=== PATIENT | female | born 1965 | race Two or more races ===

== ENCOUNTER 2023-01-28 23:34 | Inpatient (IN) | payer BC, OTHER ==
[~2023-01-28] VITALS: Ht 165.1 cm; Wt 100.7 kg
--- NOTE | 2023-01-28 23:44 | NUR ---
PA NEGRETE FROM [facility] C/O CP SINCE 7PM + NAUSEA, SAFETY MEASURES IN PLACED, SEEN BY MD AT BEDSIDE.
[2023-01-28] MEDS ORDERED: ASPIRIN 325 MG TABLET ONE (23:54)
[2023-01-28] MEDS ORDERED: NITROGLYCERIN 0.4 MG/TAB BOTTLE ONE (23:54)
--- NOTE | 2023-01-28 23:59 | NUR ---
RAC #20G S/L BLOOD COLLECTED AND SENT TO LAB
[2023-01-29] MEDS ORDERED: ONDANSETRON HCL/PF 4 MG/2 ML VIAL IV ONE
[2023-01-29] MEDS ORDERED: NITROGLYCERIN 0.4 MG/TAB BOTTLE SL ONE
[2023-01-29] MEDS ORDERED: ASPIRIN 325 MG TABLET PO ONE
[2023-01-29] MEDS ORDERED: ONDANSETRON HCL/PF 4 MG/2 ML VIAL ONE (00:02)
[2023-01-29 00:31] LABS: BASOPHILS % (AUTO) 0.7 % (0.0-2.0); EOSINOPHILS % (AUTO) 2.8 % (0.0-6.0); HEMATOCRIT 29 % (33-45); HEMOGLOBIN 9.2 g/dL (11.5-14.8); LYMPHOCYTES # (AUTO) 1.2 K/uL (0.8-4.8); LYMPHOCYTES % (AUTO) 17.2 % (20.0-44.0); MEAN CORPUSCULAR HGB CONC 32 g/dl (31.0-36.0); MEAN CORPUSCULAR VOLUME 101 fL (82-100); MONOCYTES # (AUTO) 0.7 K/uL (0.1-1.30); MONOCYTES % (AUTO) 10.4 % (2.0-12.0); NEUTROPHILS # (AUTO) 4.8 K/uL (1.8-8.9); NEUTROPHILS % (AUTO) 68.9 % (43.0-81.0); PLATELET COUNT (AUTO) 262 K/uL (150-450); RED BLOOD CELL COUNT(AUTO) 2.81 MIL/uL (4.0-5.2); WHITE BLOOD COUNT (AUTO) 6.9 K/uL (4.3-11.0)
--- NOTE | 2023-01-29 00:34 | NUR ---
SHOE PLANNER AT PT'S BEDSIDE
[2023-01-29 00:41] LABS: CALCIUM, SERUM 8.9 mg/dL (8.5-10.1); CARBON DIOXIDE 29 mmol/L (21-32); CHLORIDE 98 mmol/L (98-107); CREATININE 2.8 mg/dL (0.6-1.3); GLUCOSE 152 mg/dL (74-106); SODIUM SERUM 133 mmol/L (136-145); UREA NITROGEN, BLOOD 37 mg/dL (7-18)
[2023-01-29 00:56] LABS: ALANINE AMINOTRANSFERASE 23 U/L (12-78); ALBUMIN 2.8 g/dL (3.4-5.0); ALKALINE PHOSPHATASE 212 U/L (46-116); ASPARTATE AMINOTRANSFERASE 22 U/L (15-37); BILIRUBIN,DIRECT 0.1 mg/dL (0.0-0.2); BILIRUBIN,TOTAL 0.3 mg/dL (0.2-1.0); TOTAL PROTEIN, SERUM 7.1 g/dL (6.4-8.2)
[2023-01-29] MEDS ORDERED: FUROSEMIDE 40 MG/4 ML VIAL IV ONE (01:00)
[2023-01-29] MEDS ORDERED: ALBUTEROL FS 2.5 MG/0.5 ML VIAL.NEB NEB ONE (01:00)
[2023-01-29] MEDS ORDERED: CALCIUM CHLORIDE 1,000 MG/10 ML DISP.SYRIN IV ONE (01:00)
[2023-01-29] MEDS ORDERED: SODIUM POLYSTYRENE SULFONATE 15 G/60 ML BOTTLE PO ONE (01:00)
[2023-01-29] MEDS ORDERED: LEVOFLOXACIN 750 MG /D5W 150ML PIGGYBACK IV ONE (01:00)
[2023-01-29] MEDS ORDERED: SODIUM POLYSTYRENE SULFONATE 15 G/60 ML BOTTLE ONE (01:01)
[2023-01-29] MEDS ORDERED: CALCIUM CHLORIDE 1,000 MG/10 ML DISP.SYRIN ONE (01:01)
[2023-01-29] MEDS ORDERED: FUROSEMIDE 40 MG/4 ML VIAL ONE (01:01)
--- NOTE | 2023-01-29 01:01 | NUR ---
CALLED RT FOR BREATHING TX
--- NOTE | 2023-01-29 01:04 | NUR ---
COVID ANTIGEN & MRSA SWAB COLLECTED AND SENT TO LAB
--- NOTE | 2023-01-29 01:06 | NUR ---
COVID ANTIGEN AND MRSA SWAB COLLECTED AND SENT TO LAB.
[2023-01-29] MEDS ORDERED: ALBUTEROL FS 2.5 MG/0.5 ML VIAL.NEB ONE (01:17)
[2023-01-29] MEDS ORDERED: MORPHINE SULFATE INJ 2 MG/ML DISP.SYRIN ONE (01:19)
--- NOTE | 2023-01-29 01:25 | NUR ---
SUPERVISOR LABOR GANG AT BEDSIDE, PT BLOOD DRAWN FOR CULTURE
[2023-01-29] MEDS ORDERED: MORPHINE SULFATE INJ 2 MG/ML DISP.SYRIN IV ONE (01:30)
[2023-01-29] MEDS ORDERED: LEVOFLOXACIN 750 MG /D5W 150ML 150 ML IV ONE (01:31)
--- NOTE | 2023-01-29 01:55 | NUR ---
DR BRISCOE DO ON PHONE CALL WITH DR BERTO DUQUE HOSPITALIST
[2023-01-29] MEDS ORDERED: IV NS 0.9% 500 ML BAG IV ONE (02:30)
--- NOTE | 2023-01-29 02:35 | NUR ---
REPORT GIVEN TO 3W MARGARITA GENTILE PT TRANSFERRED TO 322
--- NOTE | 2023-01-29 03:00 | NUR ---
pt transported to [address] [place] [id number] on stable condition, RN at bedside acls protocol followed upon transport
[2023-01-29] MEDS ORDERED: MAG HYDROX/AL HYDROX/SIMETH 30 ML UDC PO PRN (03:30)
[2023-01-29] MEDS ORDERED: MAGNESIUM HYDROXIDE 30 ML UDC PO PRN (03:30)
[2023-01-29] MEDS ORDERED: ACETAMINOPHEN 325 MG TABLET PO PRN (03:30)
[2023-01-29] MEDS ORDERED: ZOLPIDEM TARTRATE 5 MG TABLET PO PRN (03:30)
[2023-01-29] MEDS ORDERED: LEVOFLOXACIN 500 MG /D5W 100ML 500 MG in PREMIX 1 EA IV SCH (03:30)
--- NOTE | 2023-01-29 03:30 | NUR ---
MORTGAGE FIELD INSPECTORDOG LICENSE OFFICER SUPERVISOR NOTE PATIENT ARRIVED ON UNIT ALERT/ORIENTED X 3, PT ABLE TO MAKE NEEDS KNOWN. PATIENT IMMEDIATELY ASKING FOR MORPHINE AND ATIVAN DESPITE GIVEN MORPHINE 2 MG IN ER 1 HR AGO, PATIENT DESCRIBES 10/10 PAIN IN "CHEST, BACK, FEET, EVERYWHERE", WILL NOTIFY MD FOR PAIN MEDICATION ORDER. PATIENT ALSO ASKING FOR ATIVAN, STATES SHE NEEDS IT FOR HER ANXIETY. PATIENT STABLE ON 2 LPM OF O2 VIA NASAL CANNULA, NO S/S OF DISTRESS OR SOB NOTED, BREATHING EVEN AND UNLABORED. PATIENT PLACED ON TELE MONITOR READING SINUS RHYTHM WITH PAC'S, HR: 82. WOUND PHOTOS TAKEN. BELONGINGS CHARTED AND SHEET PLACED IN CHART. ORIENTED PATIENT TO ROOM AND HOW TO USE CALL LIGHT. PUREWICK PLACED ON PATIENT. SAFETY MEASURES IN PLACE: CALL LIGHT WITHIN REACH, SIDE RAILS UP X 3, BED LOCKED IN LOWEST POSITION, HOB ELEVATED, BED ALARM ON. WILL CONTINUE TO MONITOR PATIENT
[2023-01-29 04:00] VITALS: BP 135/58
[2023-01-29] MEDS ORDERED: MORPHINE SULFATE INJ 2 MG/ML DISP.SYRIN IV PRN (04:00)
[2023-01-29] MEDS: LORAZEPAM INJ 2 MG/ML VIAL IV PRN ×2 (05:07→13:46)
[2023-01-29 06:16] LABS: CALCIUM, SERUM 9.4 mg/dL (8.5-10.1)
[2023-01-29 06:26] LABS: POTASSIUM 6.2 mmol/L (3.5-5.1)
[2023-01-29 07:00] VITALS: BP 117/60
--- NOTE | 2023-01-29 07:10 | NUR ---
DISTANCE LEARNING PROGRAM COORDINATOR OPENING NOTES RECEIVED PATIENT AWAKE IN BED, A/O3, ON 2LPM VIA NASAL CANNULA, NO RESPIRATORY DISTRESS, IV ACCESS RAC #20G SL, INTACT AND PATENT, NO S/S OF INFILTRATION, ON TELE MONITORING, SINUS RHYTHM HR 79, PATIENT C/O GENERALIZED PAIN, PRN ADMINISTERED AT THIS TIME, EXPLAINED TO PATIENT UNABLE TO GIVE,HAS PUREWICK, SKIN ISSUES, GENERALIZED REDNESS AND LEFT ARM SCAB AND BRUISES, SAFETY MEASURES IN PLACE, BED LOCK AND IN LOWEST POSITION, HOB ELEVATED, CALL LIGHT WITHIN REACH, SIDE RAILS UP X2.
--- NOTE | 2023-01-29 07:15 | NUR ---
PRECIPITATOR OPERATOR CLOSING NOTE PATIENT AWAKE IN BED, ALERT/ORIENTED X 3, PT ABLE TO MAKE NEEDS KNOWN. PATIENT STABLE ON 2 LPM OF O2 VIA NASAL CANNULA, NO S/S OF DISTRESS OR SOB NOTED, BREATHING EVEN AND UNLABORED. PATIENT ON TELE MONITOR READING SINUS BRODY WITH ARRHYTHMIA, HR: 58. PATIENT CONTINUOUSLY ASKING FOR PAIN MEDICATION, STATES "MORPHINE DOESN'T WORK FOR ME, I NEED DILAUDID", "I HAVE A VERY LOW PAIN TOLERANCE," "I'M IN A LOT OF PAIN EVERYWHERE." IV ACCESS ON RAC #20G INTACT AND FLUSHING WELL, SALINE LOCKED. MEDICATIONS GIVEN ORDERED, PT NEEDS MET THROUGHOUT SHIFT. MRSA SWAB TAKEN. SAFETY MEASURES IN PLACE: CALL LIGHT WITHIN REACH, SIDE RAILS UP X 3, BED LOCKED IN LOWEST POSITION, HOB ELEVATED, BED ALARM ON. ENDORSED TO DAYSHIFT RN FOR CONTINUITY OF CARE
[2023-01-29] MEDS: PANTOPRAZOLE 40 MG TABLET.DR PO SCH (08:17)
[2023-01-29] MEDS: ASPIRIN 81 MG TAB.CHEW PO SCH (08:17)
[2023-01-29] MEDS: MORPHINE SULFATE INJ 2 MG/ML DISP.SYRIN IV PRN ×5 (08:50→23:03)
--- NOTE | 2023-01-29 08:51 | NUR ---
RN NOTES PATIENT COMPLAINING OF PAIN 10/10, GENERALIZED AND CHEST. MD NOTIFIED AND MORPHINE PRN CHANGED TO Q4 INSTEAD OF Q6. PRN ADMINISTERED.
[2023-01-29] MEDS: ALBUMIN 25% 25 GM in PREMIX 1 EA IV PRN (09:40)
--- NOTE | 2023-01-29 09:56 | NUR ---
RN NOTE PATIENT HAVING DIALYSIS HD NURSE INFORMED RN THAT BP IS LOW, PRN ALBUMIN ORDERED AND ADMINISTERED.
--- NOTE | 2023-01-29 13:48 | NUR ---
RN NOTES PATIENT REQUESTED PRN ATIVAN. MEDICATION ADMINISTERED. WILL CONTINUE TO MONITOR.
[2023-01-29 14:08] LABS: CALCIUM, SERUM 9.3 mg/dL (8.5-10.1); CREATININE 2.7 mg/dL (0.6-1.3); POTASSIUM 4.9 mmol/L (3.5-5.1)
[2023-01-29] MEDS ORDERED: EPOETIN ALFA-EPBX 10,000 UNIT/ML VIAL IV ONE (15:00)
[2023-01-29] MEDS ORDERED: CT SWABBABLE VALVE TRANS SET 1 EA INFUS.SET MC ONE (15:19)
[2023-01-29] MEDS ORDERED: IV NS 0.9% 250 ML IV ONE (15:19)
[2023-01-29] MEDS ORDERED: IOHEXOL-350 100 ML VIAL IV ONE (15:19)
[2023-01-29 16:00] VITALS: BP 118/66
--- NOTE | 2023-01-29 17:00 | NUR ---
RN NOTES CALLED [facility] REGARDING PATIENT'S MEDICATION. SPOKE TO SYLVIE, GAVE FAX NUMBER AND REQUESTED MED LIST TO BE SENT.
--- NOTE | 2023-01-29 18:44 | NUR ---
NBA PLAYER CLOSING NOTES PATIENT AWAKE IN BED, A/OX3, STABLE ON 2LPM VIA NASAL CANNULA, NO RESPIRATORY DISTRESS, IV ACCESS RAC #20G SL, INTACT AND PATENT, NO S/S OF INFILTRATION, ON TELE MONITORING, SINUS RHYTHM HR 79, PATIENT C/O GENERALIZED PAIN, PRN ADMINISTERED AT THIS TIME, EXPLAINED TO PATIENT UNABLE TO GIVE,HAS PUREWICK, SKIN ISSUES, GENERALIZED REDNESS AND LEFT ARM SCAB AND BRUISES, ADMINISTERED MEDICATION ORDERED, PATIENT WAS TURNED AND REPOSITIONED PER PROTOCOL, ALL NEEDS ATTENDED, SAFETY MEASURES IN PLACE AND MAINTAINED AT ALL TIMES, BED LOCK AND IN LOWEST POSITION, HOB ELEVATED, CALL LIGHT WITHIN REACH, SIDE RAILS UP X2. WILL ENDORSE TO NEXT SHIFT ANY GUILLERMINA.
--- NOTE | 2023-01-29 19:40 | NUR ---
PIPING SUPERVISOR OPENING NOTE RECEIVED PATIENT AWAKE, RESTING IN BED. PT A/O X3, ABLE TO VERBALIZE NEEDS. ON 2LPM VIA NASAL CANNULA, NO RESPIRATORY DISTRESS, IV ACCESS TO RIGHT AC #20G SL, INTACT AND PATENT, NO S/S OF INFILTRATION, ON TELE MONITORING, SINUS RHYTHM WITH HR: 81. HAS PUREWICK IN PLACE. SKIN ISSUES: GENERALIZED REDNESS AND LEFT ARM SCAB AND BRUISES. SAFETY MEASURES IMPLEMENTED: BED LOCK AND IN LOWEST POSITION, HOB ELEVATED, CALL LIGHT WITHIN REACH, SIDE RAILS UP X2. WILL CONTINUE TO MONITOR PT.
[2023-01-29 20:00] VITALS: BP 119/58
--- NOTE | 2023-01-29 21:00 | NUR ---
BOAT OUTFITTER NOTE PT'S IV TO RIGHT AC #20G, IS NO LONGER PATENT. TRIED UNSUCCESSFULLY TO INSERT IV SEVERAL TIMES. PT HAS VERY POOR VEINS.
--- NOTE | 2023-01-29 23:00 | NUR ---
PUTTY AND CAULKING SUPERVISOR NOTE NEW IV ACCESS INSERTED TO RIGHT UPPER ARM #22G, IV INTACT, AND PATENT.
--- NOTE | 2023-01-29 23:03 | NUR ---
HEAD GROWER NOTE PT REPORTS BACK PAIN. MORPHINE ADMINISTERED TO PT FOR PAIN.
--- NOTE | 2023-01-29 23:50 | NUR ---
CHARGE NURSE NOTES Pt is a hard stick, got a Midline order from Dr. Baca, order noted and carried out
[2023-01-30] MEDS: LORAZEPAM INJ 2 MG/ML VIAL IV PRN ×3 (00:10→16:32)
--- NOTE | 2023-01-30 01:25 | NUR ---
TRAINING INSTRUCTOR NOTE MIDLINE INSERTION ORDER GIVEN BY DR THOMSON. MIDLINE NURSE PRESENT, AND MIDLINE INSERTED TO RIGHT UPPER ARM, #18G. .
--- NOTE | 2023-01-30 03:00 | NUR ---
OFFICE SYSTEM ANALYST NOTE PT C/O BEING UNABLE TO URINATE. BLADDER SCAN DONE, PVR: 123 ML OF URINE. PT IS ON HD. CHARGE NURSE AWARE.
[2023-01-30] MEDS: MORPHINE SULFATE INJ 2 MG/ML DISP.SYRIN IV PRN ×5 (03:18→22:07)
--- NOTE | 2023-01-30 03:20 | NUR ---
SPECIAL EDUCATION RESOURCE ROOM TEACHER NOTE PT C/O GENERALIZED PAIN. MORPHINE ADMINISTERED TO PT FOR PAIN.
--- NOTE | 2023-01-30 06:40 | NUR ---
PIGMENT MAKING SUPERVISOR CLOSING NOTE LEFT PATIENT AWAKE, RESTING IN BED. PT A/O X3, ABLE TO VERBALIZE NEEDS. ON 2LPM VIA NASAL CANNULA, NO RESPIRATORY DISTRESS, MIDLINE TO RIGHT UA #18G SL,AND RIGHT UA IV ACCESS, 22G, INTACT AND PATENT, NO S/S OF INFILTRATION, ON TELE MONITORING, SINUS RHYTHM WITH HR: 81. HAS PUREWICK IN PLACE, URINE OUTPUT: 150 ML. SKIN ISSUES: GENERALIZED REDNESS AND LEFT ARM SCAB AND BRUISES. SAFETY MEASURES IMPLEMENTED: BED LOCK AND IN LOWEST POSITION, HOB ELEVATED, CALL LIGHT WITHIN REACH, SIDE RAILS UP X2. WILL ENDORSE PT TO AM SHIFT NURSE FOR GUILLERMINA.
[2023-01-30 07:00] VITALS: BP 105/57
--- NOTE | 2023-01-30 07:00 | NUR ---
AGRICULTURE TECHNICIAN OPENING NOTES: RECEIVED PT IN BED AWAKE, ALERT AND ORIENTED X 3 ABLE TO MAKE NEEDS KNOWN. ON PAIN MEDS ORDERED. ON TELE MONITOR WITH CURRENT READING OF:SINUS RHYTHM @ 77BPM. NOTED WITH LEFT CHEST PERMA CATH. IV ACCESS ON CHRIS GAUGE 20, HCRIS MIDLINE GAUGE 18 PATENT, INTACT AND SALINE LOCKED. ON PUREWICK ATTACHED TO SUCTION.SAFETY MEASURES MAINTAINED: BED LOCKED AND IN LOWEST POSITION, SIDERAILS UP X 2. CALL LIGHT IN EASY REACH AND WILL MONITOR PT ACCORDINGLY.
[2023-01-30] MEDS: PANTOPRAZOLE 40 MG TABLET.DR PO SCH (07:34)
[2023-01-30 07:45] LABS: BASOPHILS % (AUTO) 0.7 % (0.0-2.0); EOSINOPHILS % (AUTO) 3.8 % (0.0-6.0); HEMATOCRIT 27 % (33-45); HEMOGLOBIN 8.7 g/dL (11.5-14.8); LYMPHOCYTES # (AUTO) 1.1 K/uL (0.8-4.8); LYMPHOCYTES % (AUTO) 20.7 % (20.0-44.0); MEAN CORPUSCULAR HGB CONC 33 g/dl (31.0-36.0); MEAN CORPUSCULAR VOLUME 102 fL (82-100); MONOCYTES # (AUTO) 0.5 K/uL (0.1-1.30); MONOCYTES % (AUTO) 9.5 % (2.0-12.0); NEUTROPHILS # (AUTO) 3.5 K/uL (1.8-8.9); NEUTROPHILS % (AUTO) 65.3 % (43.0-81.0); PLATELET COUNT (AUTO) 244 K/uL (150-450); RED BLOOD CELL COUNT(AUTO) 2.62 MIL/uL (4.0-5.2); WHITE BLOOD COUNT (AUTO) 5.4 K/uL (4.3-11.0)
[2023-01-30 08:04] LABS: CALCIUM, SERUM 8.7 mg/dL (8.5-10.1); CREATININE 3.1 mg/dL (0.6-1.3); MAGNESIUM 2.1 mg/dL (1.8-2.4); PHOSPHORUS 4.7 mg/dL (2.5-4.9); POTASSIUM 6.1 mmol/L (3.5-5.1)
[2023-01-30 08:14] LABS: THYROID STIMULATING HORMONE 8.896 uIU/mL (0.358-3.74)
[2023-01-30] MEDS: ASPIRIN 81 MG TAB.CHEW PO SCH (08:17)
--- NOTE | 2023-01-30 08:38 | NUR ---
WOUND CARE CONSULT: PT PRESENTS WITH SACRAL INTACT DEEP TISSUE INJURY WITH DRY SCAB TO RT BUTTOCK, RASHES TO BREASTFOLDS, ABDOMINAL/GROIN FOLDS AND FRAGILE SKIN, ALL PRESENT ON ADMISSION. RECOMMENDATIONS MADE FOR SKIN PROTECTION. DISCUSSED WITH NURSING STAFF. MD IN AGREEMENT WITH PLAN OF CARE.
--- NOTE | 2023-01-30 08:45 | NUR ---
RN NOTES: PT STARTED HD, PT STABLE.
[2023-01-30] MEDS ORDERED: DEXTROSE 50%-WATER 50 ML DISP.SYRIN IVP ONE (09:00)
[2023-01-30] MEDS: METOPROLOL TARTRATE 50 MG TABLET PO SCH ×2 (09:00→20:33)
[2023-01-30] MEDS ORDERED: INSULIN REGULAR, HUMAN 100 UNIT/ML 10 ML VIAL IV ONE (09:00)
[2023-01-30] MEDS: CLOTRIMAZOLE 1% 15 GM TUBE TP SCH ×2 (09:13→16:36)
[2023-01-30] MEDS: ALBUMIN 25% 25 GM in PREMIX 1 EA IV PRN (09:13)
--- NOTE | 2023-01-30 09:35 | NUR ---
RN NOTES: INFORMED DR GOMES BS 123MG/DL AND BP 100/52. PT K LEVEL 6.1. MD ORDERED GIVE D50 25ML PLUS 10 UNITS REGULAR INSULIN, METOPROLOL HOLD. ORDERS NOTED AND CARRIED OUT.
[2023-01-30] MEDS ORDERED: LORA-259 PO (10:22)
[2023-01-30] MEDS ORDERED: ASPI-1420 PO (10:22)
[2023-01-30] MEDS ORDERED: LEVO175T7 PO (10:22)
[2023-01-30] MEDS ORDERED: CHOL100043 PO (10:22)
[2023-01-30] MEDS ORDERED: BUSP5TAB3 PO (10:22)
[2023-01-30] MEDS ORDERED: HYOS0.1275 SL (10:22)
[2023-01-30] MEDS ORDERED: CIPR-263 PO (10:22)
[2023-01-30] MEDS ORDERED: GUAI100S11 GT (10:22)
[2023-01-30] MEDS ORDERED: EPOE40007 SQ (10:22)
[2023-01-30] MEDS ORDERED: CLOP75TA15 PO (10:22)
[2023-01-30] MEDS ORDERED: HYDR200T4 PO (10:22)
[2023-01-30] MEDS ORDERED: HYDR-4209 PO (10:22)
[2023-01-30] MEDS ORDERED: TRAZ-182 PO (10:23)
[2023-01-30] MEDS ORDERED: OXYB5TAB16 PO (10:23)
[2023-01-30] MEDS ORDERED: LUBI24CA5 PO (10:23)
[2023-01-30] MEDS ORDERED: SODI88SP18 (10:23)
[2023-01-30] MEDS ORDERED: NITR0.4T48 SL (10:23)
[2023-01-30] MEDS ORDERED: POLY17PO4 PO (10:23)
[2023-01-30] MEDS ORDERED: METO25TA3 PO (10:23)
[2023-01-30] MEDS ORDERED: FOLI0.8T2 PO (10:23)
[2023-01-30] MEDS ORDERED: ONDA4TAB5 PO (10:23)
--- NOTE | 2023-01-30 11:45 | NUR ---
RN NOTES: PT FINISHED HD, OUTPUT 1L.PT STABLE.
[2023-01-30 12:52] LABS: CALCIUM, SERUM 8.5 mg/dL (8.5-10.1); CREATININE 1.8 mg/dL (0.6-1.3); POTASSIUM 4.5 mmol/L (3.5-5.1)
[2023-01-30 16:00] VITALS: BP 137/63
--- NOTE | 2023-01-30 18:59 | NUR ---
ACCOUNT CLASSIFICATION CLERK CLOSING NOTES: PT IN BED ASLEEP, EASILY AROUSED WITH STIMULI. PT ALERT AND ORIENTED X 4 AND ABLE TO MAKE NEEDS KNOWN. NO SOB OR CARDIAC DISTRESS NOTED IV ACCESS ON CHRIS GAUGE 20,CHRIS ML GAUGE 18 PATENT INTACT AND SALINE LOCKED. HD SITE ON LCW, S/P HD TODAY. ON PAIN MGMT ORDERED. ANURIC NO OUTPUT ON OUR SHIFT. ON TELE MONITOR WITH CURRENT READING SINUS RHYTHM @65BPM. SAFETY MEASURES MAINTAINED: BED LOCKED AND IN LOWEST POSITION, SIDE RAILS UP X 2. CALL LIGHT IN EASY REACH FOR HELP. WILL MONITOR PT ACCORDINGLY. ENDORSED TO WEIGHT LOSS SALES CONSULTANT RN FOR CONTINUITY OF CARE.
--- NOTE | 2023-01-30 19:30 | NUR ---
VICE PRESIDENT OF COMMUNICATIONS OPENING NOTE RECEIVED PT IN BED ASLEEP, EASILY AROUSED WITH STIMULI. A/O X4, ABLE TO MAKE NEEDS KNOWN. ON O2 2L VIA NC WITH NO SOB OR CARDIAC DISTRESS NOTED. ON MEDICAL REPRESENTATIVE READING SR, 68. IV ACCESS RAC #20G SL, CHRIS ML #18G SL, PATENT, INTACT FLUSHING WELL. HD SITE ON LCW. ON PAIN MGMT ORDERED. ANURIC PER ENDORSEMENT. SAFETY MEASURES IN PLACE: BED LOCKED AND IN LOWEST POSITION, SIDE RAILS UP X3, CALL LIGHT AND TRAY TABLE WITHIN EASY REACH. WILL CONTINUE TO MONITOR AND ASSIST.
[2023-01-30 20:00] VITALS: BP 90/53
--- NOTE | 2023-01-30 21:41 | NUR ---
RN NOTE CRITICAL LAB REPORT: POSITIVE BLOOD CULTURE, BUDDING YEAST. DR THOMSON NOTIFIED, ORDERED DIFLUCAN 100 MG IV DAILY. WILL ADMINISTER ORDERED.
[2023-01-30] MEDS ORDERED: FLUCONAZOLE IN NS 100 ML IV ONE (23:09)
[2023-01-31] VITALS: BP 102/55
[2023-01-31] MEDS: FLUCONAZOLE IN NS 100 MG in PREMIX 1 EA IV SCH ×4 (00:27→23:05)
[2023-01-31] MEDS: LORAZEPAM INJ 2 MG/ML VIAL IV PRN ×3 (00:27→17:15)
--- NOTE | 2023-01-31 00:27 | NUR ---
RN NOTE SCHEDULED DIFLUCAN 100MG FOR 2300 LATE ADMIN DUE TO UNAVAILABILITY.
[2023-01-31] MEDS: MORPHINE SULFATE INJ 2 MG/ML DISP.SYRIN IV PRN ×5 (02:56→19:59)
[2023-01-31 04:00] VITALS: BP 103/58
[2023-01-31 07:00] VITALS: BP 123/66
--- NOTE | 2023-01-31 07:00 | NUR ---
GRANITE SANDBLASTER APPRENTICE CLOSING NOTE PT IN BED AWAKE AT THIS TIME. VERY DEMANDING, ASKING FOR PAIN MEDS BEFORE DUE DURING SHIFT. A/O X4, ABLE TO MAKE NEEDS KNOWN. STABLE ON O2 3L VIA NC WITH NO SOB OR CARDIAC DISTRESS NOTED. ON FINISH MOLDER READING SR, 79 WITH OCCASIONAL PAC'S. IV ACCESS RAC #20G SL, CHRIS ML #18G SL, PATENT, INTACT FLUSHING WELL. HD SITE ON LCW. ON PAIN MGMT ORDERED. ANURIC PER ENDORSEMENT. ALL CARE PROVIDED AND MEDS TOLERATED WELL. SAFETY MEASURES MAINTAINED: BED LOCKED AND IN LOWEST POSITION, SIDE RAILS UP X3, CALL LIGHT AND TRAY TABLE WITHIN EASY REACH. WILL ENDORSE GUILLERMINA TO DAY SHIFT NURSE.
[2023-01-31] MEDS: PANTOPRAZOLE 40 MG TABLET.DR PO SCH (07:22)
--- NOTE | 2023-01-31 07:30 | NUR ---
FUNDRAISING DIRECTOR OPENING NOTE (DAY SHIFT) RECEIVED PT IN BED AWAKE, ALERT AND ORIENTED X 3, ABLE TO MAKE NEEDS KNOWN. ON PAIN MEDS ORDERED. ON TELE MONITOR WITH CURRENT READING OF:SINUS RHYTHM IN 60s TO 70s BPM RANGE. NO VISIBLE SIGNS OF PAIN NOR DISTRESS, NOR RESPIRATORY EXERTION. PATIENT C/O 10/10 PAIN DESPITE RECEIVING MORPHINE 2 MG IV PUSH @ 6:56 AM. NOTED THAT PATIENT HAS A PERMA CATH TO LEFT UPPER CHEST. IV ACCESS ON CHRIS MIDLINE GAUGE 18 AND RIGHT AC #20 G BOTH ARE INTACT, PATENT, AND SALINE LOCKED. ON PUREWICK ATTACHED TO SUCTION. SAFETY MEASURES MAINTAINED: BED LOCKED AND IN LOWEST POSITION, SIDERAILS UP X 2. CALL LIGHT IN EASY REACH AND WILL MONITOR AND CARE FOR PT PER HOSPITALIST PROVIDER'S POC.
[2023-01-31] MEDS: METOPROLOL TARTRATE 50 MG TABLET PO SCH ×3 (08:53→20:56)
[2023-01-31] MEDS: ASPIRIN 81 MG TAB.CHEW PO SCH (08:53)
[2023-01-31] MEDS ORDERED: LEVOFLOXACIN 750 MG /D5W 150ML 750 MG in PREMIX 1 EA IV SCH (09:00)
[2023-01-31] MEDS ORDERED: LEVOFLOXACIN 500 MG /D5W 100ML 500 MG in PREMIX 1 EA IV SCH (09:00)
[2023-01-31] MEDS: CLOTRIMAZOLE 1% 15 GM TUBE TP SCH ×2 (09:05→17:20)
[2023-01-31 12:00] VITALS: BP 113/58
[2023-01-31 16:00] VITALS: BP 100/50
[2023-01-31] MEDS: PROSOURCE / PROSTAT (PYXIS) 30 ML UDC GT SCH (17:00)
--- NOTE | 2023-01-31 18:00 | NUR ---
PERSONAL COUNSELOR CLOSING NOTE (DAY SHIFT) PT IN BED ASLEEP, EASILY AROUSED WITH STIMULI. PT ALERT AND ORIENTED X 4 AND ABLE TO MAKE NEEDS KNOWN. NO SOB OR CARDIAC DISTRESS NOTED IV ACCESS ON # 18 GAUGE ML TO RIGHT UPPER ARM IS PATENT, INTACT, AND SALINE LOCKED. HD SITE ON LCW, S/P HD YESTERDAY. ON PAIN MGMT ORDERED. ANURIC NO OUTPUT ON OUR SHIFT. ON TELE MONITOR WITH CURRENT READING SINUS RHYTHM 60s -70s BPM RANGE. SAFETY MEASURES MAINTAINED: BED LOCKED AND IN LOWEST POSITION, SIDE RAILS UP X 2. CALL LIGHT IN EASY REACH FOR HELP. WILL ENDORSE TO CONCRETE VIBRATOR OPERATOR RNEnriqueta, FOR CONTINUITY OF CARE.
--- NOTE | 2023-01-31 19:08 | NUR ---
RN NOTES: UPON ENDORSEMENT SHE WAS HALF ASLEEP, AWAKEN, A/OX3-4, WITH PERIODS OF FORGETFULNESS,ON TELE MONITOR-SR WITH PVC AND PAC IRREGULAR=80'S, ON NC 3L/MIN, HD: LCW PERMACATH, DRESSING DRY AND INTACT, INCONTINENT WITH PUREWICK,ANURIC, FOR URINE COLLECTION, ON BED REST, OBESE, WITH RIGHT TOE AMPUTATION, CHRIS ML G#18 IN SITE, FOR POSSIBLE DISCHARGE TOMORROW, SUPPOSE TO BE DISCHARGE TODAY BUT DUE TO BLOOD C/S RESULT HUMAN RESOURCES LEADER-HOSPITALIST ORDERED TO WAIT TILL TOMORROW, SHE HAD DIALYSIS YESTERDAY AND DUE FOR TOMORROW, HD Q T-TH-S.SAFETY AND ASPIRATION PRECAUTION OBSERVED, ORIENTED TO UNIT AND STAFF KEPT CALL LIGHT WITHIN EASY REACH.
[2023-01-31 20:00] VITALS: BP 107/49
--- NOTE | 2023-01-31 20:08 | NUR ---
RN NOTES: AFTER ENDORSEMENT SHE ASKED FOR HER PAIN MEDICATION, GIVEN, NON PHARMACOLOGIC INTERVENTION RENDERED, WARM BLANKET AND GIVEN PEANUT BUTTER SANDWICH.
--- NOTE | 2023-01-31 20:59 | NUR ---
RN NOTES: BP-107/49 DE-68, HE JUST RECEIVED HER PAIN MEDICATION IV, CN NOTIFIED,DBP IS VERY LOW, METOPROLOL NOT GIVEN.
[2023-02-01] VITALS (8 sets, daily range): BP systolic 93–141; BP diastolic 50–88
[2023-02-01] MEDS: MORPHINE SULFATE INJ 2 MG/ML DISP.SYRIN IV PRN ×3 (00:57→21:09)
--- NOTE | 2023-02-01 01:02 | NUR ---
RN NOTES: CALLING AT FREQUENT INTERVALS,ALL CALLS ATTENDED, BLANKET GIVEN AND CHANGE SEVERAL TIMES, REPOSITIONED, ASKED FOR PAIN MEDS, NON PHARMACOLOGIC INTERVENTION INEFFECTIVE. PAIN MEDS IV GIVEN.
[2023-02-01] MEDS: LORAZEPAM INJ 2 MG/ML VIAL IV PRN ×2 (03:32→15:32)
--- NOTE | 2023-02-01 03:33 | NUR ---
RN NOTES: CALLED RN AND ASKED FOR HER ATIVAN INJECTION, NON PHARMACOLOGIC INTERVENTION IS INEFFECTIVE, MEDS GIVEN PER PATIENT REQUEST.
[2023-02-01 05:51] LABS: BASOPHILS % (AUTO) 0.8 % (0.0-2.0); EOSINOPHILS % (AUTO) 3.9 % (0.0-6.0); HEMATOCRIT 26 % (33-45); HEMOGLOBIN 8.6 g/dL (11.5-14.8); LYMPHOCYTES # (AUTO) 1.2 K/uL (0.8-4.8); LYMPHOCYTES % (AUTO) 22.6 % (20.0-44.0); MEAN CORPUSCULAR HGB CONC 33 g/dl (31.0-36.0); MEAN CORPUSCULAR VOLUME 101 fL (82-100); MONOCYTES # (AUTO) 0.5 K/uL (0.1-1.30); MONOCYTES % (AUTO) 9.3 % (2.0-12.0); NEUTROPHILS # (AUTO) 3.4 K/uL (1.8-8.9); NEUTROPHILS % (AUTO) 63.4 % (43.0-81.0); PLATELET COUNT (AUTO) 254 K/uL (150-450); WHITE BLOOD COUNT (AUTO) 5.3 K/uL (4.3-11.0)
--- NOTE | 2023-02-01 06:16 | NUR ---
RN NOTES: MORNING CARE DONE, REFUSED FOR SPONGE BATH, CLEANED AND CHANGE, ANURIC, NO OUTPUT, REFUSED FOR STRAIGHT CATH, WILL TRY AGAIN TO OFFER LATER,FOR URINE COLLECTION, AFTER SHE WAS CHANGE SHE GO BACK TO SLEEP.
[2023-02-01 06:17] LABS: CALCIUM, SERUM 8.8 mg/dL (8.5-10.1); CREATININE 3.4 mg/dL (0.6-1.3); MAGNESIUM 2.3 mg/dL (1.8-2.4); PHOSPHORUS 5.4 mg/dL (2.5-4.9); POTASSIUM 6.1 mmol/L (3.5-5.1)
--- NOTE | 2023-02-01 06:52 | NUR ---
RN NOTES: ABLE TO REST AND SLEEP, REPOSITIONED, ON TELE MONITOR SINUS RHYTHM-80'S, NO CHEST PAIN, FOR DIALYSIS THIS MORNING, FOR LABS, TO F/U WITH PT FOR THERAPY, CONTINUE ON O2 AT 3L/MIN VIA NC, KEPT ON CLOSE WATCH, LATETS WEIGHT-207, ENDORSED FOR CONTINUITY OF CARE.
--- NOTE | 2023-02-01 07:45 | NUR ---
REPAIRER PUMP OPENING NOTE RECEIVED PATIENT AWAKE IN BED A/O X3-4. ON ROOM AIR, NO S/S OF DISTRESS AND NO SOB NOTED. ABLE TO MAKE NEEDS KNOWN. IV AT CHRIS #18G SL INTACT AND PATENT. WITH EXTERNAL DEBARKER OPERATOR ON SINUS RHYTHM WITH HR 66. WITH HD ACCESS LCW. FALL AND SAFETY PRECAUTION IN PLACE: BED LOCKED AND AT THE LOWEST POSITION, SIDE RAILS UP X2, CALL LIGHT WITHIN REACH. WILL CONTINUE TO MONITOR FOR GUILLERMINA
[2023-02-01] MEDS: METOPROLOL TARTRATE 50 MG TABLET PO SCH ×3 (09:00→21:09)
[2023-02-01] MEDS: PANTOPRAZOLE 40 MG TABLET.DR PO SCH (09:13)
[2023-02-01] MEDS: PROSOURCE / PROSTAT (PYXIS) 30 ML UDC GT SCH ×2 (09:15→16:18)
[2023-02-01] MEDS: ASPIRIN 81 MG TAB.CHEW PO SCH (09:15)
[2023-02-01] MEDS: CLOTRIMAZOLE 1% 15 GM TUBE TP SCH ×2 (09:19→16:18)
[2023-02-01] MEDS: ALBUMIN 25% 25 GM in PREMIX 1 EA IV PRN (09:27)
[2023-02-01] MEDS ORDERED: EPOETIN ALFA (10,000 UNIT) 10,000 UNIT/ML VIAL IV ONE (10:30)
--- NOTE | 2023-02-01 16:00 | NUR ---
RN NOTE HEMODIALYSIS NURSE ASK FOR ALBUMIN BUT AT THE END OF THE HEMODIALYSIS HE DECIDED NOT TO ADMINISTER. MEDICATION WAS RETURNED.
[2023-02-01 17:53] LABS: CALCIUM, SERUM 8.5 mg/dL (8.5-10.1); CREATININE 2.3 mg/dL (0.6-1.3); POTASSIUM 4.3 mmol/L (3.5-5.1)
--- NOTE | 2023-02-01 18:58 | NUR ---
DIRECTOR FRANCHISE SALES CLOSING NOTE PATIENT AWAKE IN BED A/O X2-3. ON ROOM AIR, NO S/S OF DISTRESS AND NO SOB NOTED. ABLE TO MAKE NEEDS KNOWN. IV AT CHRIS #18 ML INTACT, PATENT AND FLUSHING WELL. WITH EXTERNAL SUPERVISOR REWORK WITH CURRENT READING OF SINUS RHYTHM WITH HR 73. WITH LCW PERMA CATH. SKIN CARE IMPLEMENTED. SCHEDULED MEDICATION ADMINISTERED. ALL NEEDS ATTENDED AND ANTICIPATED. FALL AND SAFETY PRECAUTION IN PLACE: BED LOCKED AND AT THE LOWEST POSITION, SIDE RAILS UP X2, CALL LIGHT WITHIN REACH. WILL ENDORSE TO DEPUTY COURT CLERK NURSE.
--- NOTE | 2023-02-01 20:30 | NUR ---
RECEIVED PATIENT IN BED, ALERT/ORIENTED X3, 3LPM VIA NC, LCW PERMA CATH, CHRIS MIDLINE HL, ESRD ON HD, OLIGURIC, KEPT SAFE AND COMFORTABLE, CALL LIGHT WITHIN REACH.
[2023-02-01] MEDS: FLUCONAZOLE IN NS 100 MG in PREMIX 1 EA IV SCH ×2 (22:07)
[2023-02-02] VITALS (8 sets, daily range): BP systolic 90–120; BP diastolic 48–76
[2023-02-02] MEDS: MORPHINE SULFATE INJ 2 MG/ML DISP.SYRIN IV PRN ×4 (02:39→21:00)
[2023-02-02 05:55] LABS: BASOPHILS % (AUTO) 0.8 % (0.0-2.0); EOSINOPHILS % (AUTO) 3.4 % (0.0-6.0); HEMATOCRIT 26 % (33-45); HEMOGLOBIN 8.3 g/dL (11.5-14.8); LYMPHOCYTES % (AUTO) 20.6 % (20.0-44.0); MEAN CORPUSCULAR HGB CONC 32 g/dl (31.0-36.0); MEAN CORPUSCULAR VOLUME 103 fL (82-100); MONOCYTES # (AUTO) 0.5 K/uL (0.1-1.30); MONOCYTES % (AUTO) 10.4 % (2.0-12.0); NEUTROPHILS # (AUTO) 3.1 K/uL (1.8-8.9); NEUTROPHILS % (AUTO) 64.8 % (43.0-81.0); PLATELET COUNT (AUTO) 232 K/uL (150-450); RED BLOOD CELL COUNT(AUTO) 2.51 MIL/uL (4.0-5.2); WHITE BLOOD COUNT (AUTO) 4.9 K/uL (4.3-11.0)
[2023-02-02] MEDS: LORAZEPAM INJ 2 MG/ML VIAL IV PRN ×3 (06:00→18:27)
[2023-02-02 06:11] LABS: CALCIUM, SERUM 8.5 mg/dL (8.5-10.1); CREATININE 2.8 mg/dL (0.6-1.3); PHOSPHORUS 4.9 mg/dL (2.5-4.9); POTASSIUM 5.2 mmol/L (3.5-5.1)
--- NOTE | 2023-02-02 06:32 | NUR ---
ALERT/ORIENTED X3, FORGETFUL, STABLE ON 3LPM VIA NC, DRUG SEEKING, BP LOW, GIVEN ATIVAN AND MORPHINE WHEN BP IS APPROPRIATE. SR WITH OCCASIONAL PAC/PVC, LCW PERMA CATH, HD T, TH, SAT. LEVAQUIN AND DIFLUCAN, PT EVAL AND TREATMENT.
--- NOTE | 2023-02-02 07:48 | NUR ---
RN OPENING NOTE RECEIVED PATIENT IN BED, AO X 3, FORGETFULNESS. ABLE TO RESPONDS ALL PHYSICAL STIMULI. RESPIRATORY EVEN AND UNLABORED ON OXYGEN AT 2Ls VIA CN, IN NO ACUTE RESPIRATORY DISTRESS OBSERVED. SKIN IS WARM TO TOUCH, KEEP CLEAN/DRY. KEPT ELEVATED HOB FOR ASPIRATION PRECAUTION AND ENSURE AIRWAY, ALSO LOWEST BED POSITIONED. BED ALARM IS ON AT ALL TIMES FOR SAFETY. CALL LIGHT WITHIN REACH, WILL CONTINUE TO MONITOR.
[2023-02-02] MEDS: ASPIRIN 81 MG TAB.CHEW PO SCH (08:20)
[2023-02-02] MEDS: LEVOFLOXACIN (250MG) 250 MG TABLET PO SCH (08:20)
[2023-02-02] MEDS: PANTOPRAZOLE 40 MG TABLET.DR PO SCH (08:20)
[2023-02-02] MEDS: CLOTRIMAZOLE 1% 15 GM TUBE TP SCH ×2 (08:20→17:32)
[2023-02-02] MEDS: PROSOURCE / PROSTAT (PYXIS) 30 ML UDC GT SCH ×2 (08:20→17:00)
[2023-02-02] MEDS: METOPROLOL TARTRATE 50 MG TABLET PO SCH ×2 (08:21→21:00)
--- NOTE | 2023-02-02 08:21 | NUR ---
BP 90/51, WILL HOLD BP MED.
--- NOTE | 2023-02-02 19:30 | NUR ---
SOFTWARE VALIDATION ENGINEER OPENING NOTE RECEIVED PT SLEEPING IN BED, EASILY AROUSED. AO X2, FORGETFUL, CONFUSED, ABLE TO MAKE NEEDS KNOWN. ON O2 3L VIA NC WITH NO S/S OF SOB OR DISTRESS. IV ACCESS CHRIS ML #18G SL, PATENT, INTACT, FLUSHING WELL. LCW PERMACATH INTACT. FOR DC PLANNING. SAFETY PRECAUTIONS IN PLACE: BED LOCKED AND IN LOW POSITION, BED ALARM ON, SIDE RAILS UP X3, CALL LIGHT AND TRAY TABLE WITHIN REACH. WILL CONTINUE TO MONITOR AND ASSIST.
[2023-02-02] MEDS ORDERED: FLUCONAZOLE (100 MG) 100 MG TABLET PO SCH (23:00)
[2023-02-03] VITALS: BP 109/48
[2023-02-03] MEDS: MORPHINE SULFATE INJ 2 MG/ML DISP.SYRIN IV PRN ×3 (02:50→19:51)
[2023-02-03] MEDS: LORAZEPAM INJ 2 MG/ML VIAL IV PRN ×2 (05:13→15:45)
--- NOTE | 2023-02-03 05:25 | NUR ---
RN NOTE PT REFUSED TO BE CLEANED AND FOR PICTURES TO BE TAKEN. EXPLAINED NEED FOR IT BUT PATIENT REFUSED ANYWAY. PT AGITATED AND STATED SHE IS NOT WET OR HAD ANY BOWEL MOVEMENT.
[2023-02-03 05:59] LABS: BASOPHILS % (AUTO) 0.5 % (0.0-2.0); EOSINOPHILS % (AUTO) 4.7 % (0.0-6.0); HEMATOCRIT 25 % (33-45); HEMOGLOBIN 8.2 g/dL (11.5-14.8); LYMPHOCYTES # (AUTO) 1.1 K/uL (0.8-4.8); LYMPHOCYTES % (AUTO) 22.9 % (20.0-44.0); MEAN CORPUSCULAR HGB CONC 33 g/dl (31.0-36.0); MEAN CORPUSCULAR VOLUME 101 fL (82-100); MONOCYTES # (AUTO) 0.5 K/uL (0.1-1.30); MONOCYTES % (AUTO) 9.3 % (2.0-12.0); NEUTROPHILS # (AUTO) 3.1 K/uL (1.8-8.9); NEUTROPHILS % (AUTO) 62.6 % (43.0-81.0); PLATELET COUNT (AUTO) 227 K/uL (150-450); RED BLOOD CELL COUNT(AUTO) 2.44 MIL/uL (4.0-5.2)
[2023-02-03 06:13] LABS: CALCIUM, SERUM 8.8 mg/dL (8.5-10.1); CREATININE 2.5 mg/dL (0.6-1.3); MAGNESIUM 2.1 mg/dL (1.8-2.4); PHOSPHORUS 4.8 mg/dL (2.5-4.9); POTASSIUM 5.3 mmol/L (3.5-5.1)
--- NOTE | 2023-02-03 06:56 | NUR ---
FLIGHT SECURITY SPECIALIST CLOSING NOTE PT SLEEPING IN BED, EASILY AROUSED. AO X2-3, FORGETFUL, CONFUSED, ABLE TO MAKE NEEDS KNOWN. STABLE ON O2 3L VIA NC WITH NO S/S OF SOB OR DISTRESS. IV ACCESS CHRIS ML #18G SL, PATENT, INTACT, FLUSHING WELL. LCW PERMACATH INTACT. FOR DC PLANNING. ALL CARE PROVIDED AND MEDS TOLERATED WELL. SAFETY PRECAUTIONS MAINTAINED: BED LOCKED AND IN LOW POSITION, BED ALARM ON, SIDE RAILS UP X3, CALL LIGHT AND TRAY TABLE WITHIN REACH. WILL ENDORSE GUILLERMINA TO DAY SHIFT NURSE.
[2023-02-03 07:00] VITALS: BP 135/69
--- NOTE | 2023-02-03 07:28 | NUR ---
TAX ADJUSTER OPENING NOTE RECEIVED PATIENT AWAKE IN BED. AO X2, FORGETFUL, CONFUSED, ABLE TO MAKE NEEDS KNOWN. ON O2 3L VIA NC WITH NO S/S OF SOB OR DISTRESS AT THIS MOMENT. IV ACCESS CHRIS ML #18G SL, PATENT, INTACT, AND FLUSHING WELL. LCW PERMACATH INTACT. SAFETY PRECAUTIONS IN PLACE: BED LOCKED AND IN LOW POSITION, BED ALARM ON, SIDE RAILS UP X3, CALL LIGHT AND TRAY TABLE WITHIN REACH. WILL CONTINUE TO MONITOR AND ASSIST PATIENT.
[2023-02-03] MEDS: PANTOPRAZOLE 40 MG TABLET.DR PO SCH (08:03)
[2023-02-03] MEDS: METOPROLOL TARTRATE 50 MG TABLET PO SCH ×2 (09:00→21:25)
[2023-02-03] MEDS: PROSOURCE / PROSTAT (PYXIS) 30 ML UDC GT SCH ×2 (09:22→17:15)
[2023-02-03] MEDS: ASPIRIN 81 MG TAB.CHEW PO SCH (09:22)
[2023-02-03] MEDS: CLOTRIMAZOLE 1% 15 GM TUBE TP SCH ×2 (09:25→17:16)
--- NOTE | 2023-02-03 09:29 | NUR ---
RN NOTES PATIENT HAS A SCHEDULED FOR HEMODIALYSIS TODAY. BLOOD PRESSURE MEDICINE ON HOLD.
--- NOTE | 2023-02-03 10:20 | NUR ---
RN NOTES PATIENT ASKING FOR A PAIN MEDICATION DUE TO BACK PAIN. SHE RATE IT 9/10. MORPHINE 2MG GIVEN. WILL CONTINUE TO MONITOR PATIENT.
[2023-02-03] MEDS ORDERED: FLUC100T8 PO (11:18)
[2023-02-03] MEDS ORDERED: LEVO250T59 PO (11:19)
[2023-02-03 12:00] VITALS: BP 103/54
--- NOTE | 2023-02-03 14:00 | NUR ---
RN NOTES PATIENT ASKING FOR A URINARY STRAIGHT CATH. INFORMED DR. GOMES AND SHE ORDERED A BLADDER SCAN FIRST FOR THE PATIENT.
--- NOTE | 2023-02-03 15:46 | NUR ---
RN NOTES PATIENT ASKING FOR LORAZEPAM BECAUSE SHE SAID SHE WAS HAVING ANXIETY. LORAZEPAM 1MG GIVEN
[2023-02-03 16:00] VITALS: BP 139/73
--- NOTE | 2023-02-03 16:00 | NUR ---
RN NOTES PATIENT HAS ONGOING DIALYSIS WITH NURSE MORENO. PATIENT IS STABLE AND NO REACTIONS AT THIS TIME. WILL CONTINUE TO MONITOR PATIENT.
[2023-02-03] MEDS: Z GUARD REMEDY 4 OZ OINT TP PRN (17:14)
--- NOTE | 2023-02-03 17:34 | NUR ---
RN NOTES PATIENT IS ON HEMODIALYSIS AND HER BLOOD PRESSURE WAS TRENDING DOWN. DR. GOMES AWARE AND ORDERED ALBUMIN 25% 100ML. WILL CONTINUE TO MONITOR PATIENT.
[2023-02-03] MEDS ORDERED: ALBUMIN 25% 25 GM in PREMIX 1 EA IV PRN (18:00)
--- NOTE | 2023-02-03 18:37 | NUR ---
HYDROTECHNICAL SPECIALIST CLOSING NOTE 322-2 PT AWAKE IN BED, AO X2-3, FORGETFUL, CONFUSED, ABLE TO MAKE NEEDS KNOWN. STABLE ON O2 3L VIA NC WITH NO S/S OF SOB OR DISTRESS. IV ACCESS CHRIS ML #18G SL, PATENT, INTACT, FLUSHING WELL. LCW PERMACATH INTACT. FOR DC PLANNING WAITING FOR CHAIRTIME. HEMODIALYSIS TODAY WITH NO REACTIONS. ALL CARE PROVIDED AND MEDS TOLERATED WELL. SAFETY PRECAUTIONS MAINTAINED: BED LOCKED AND IN LOW POSITION, BED ALARM ON, SIDE RAILS UP X3, CALL LIGHT AND TRAY TABLE WITHIN REACH. WILL ENDORSE TO CUTTER HEAD SHARPENER NURSE FOR GUILLERMINA.
--- NOTE | 2023-02-03 19:53 | NUR ---
BACK PAIN Patient in bed, refuses to reposition in bed, c/o lower back pain 05/08. Given IV Morphine, will reassess pain level.
[2023-02-03 20:00] VITALS: BP 115/62
[2023-02-04] VITALS: BP 89/54
[2023-02-04] MEDS: MORPHINE SULFATE INJ 2 MG/ML DISP.SYRIN IV PRN ×3 (00:13→08:54)
--- NOTE | 2023-02-04 00:16 | NUR ---
BACK PAIN Patient in bed, refuses to turn and reposition in bed, focused to get pain medication every 4hrs. Declined education, c/o lower back pain 05/08, no facial grimace/no moaning, watching TV. Given IV Morphine, will reassess pain level.
[2023-02-04] MEDS: LORAZEPAM INJ 2 MG/ML VIAL IV PRN ×3 (00:26→16:55)
--- NOTE | 2023-02-04 00:37 | NUR ---
HYPOTENSION Low BP 89/54 denies blurry vision, patient had dialysis treatment earlier today. Notified Dr. Baca, orders to give Bolus IVF NS 250ml.
[2023-02-04] MEDS ORDERED: IV NS 0.9% 250 ML BAG IV ONE (01:00)
[2023-02-04 04:00] VITALS: BP 108/65
--- NOTE | 2023-02-04 04:01 | NUR ---
BP IMPROVING BP slowly improved, 108/65 Pulse 64.
--- NOTE | 2023-02-04 06:34 | NUR ---
END OF SHIFT REPORT Patient in bed, Alert Oriented x3 mind focused on pain medication. Sinus rhythm in the transformation architect with PAC, PVC. HR 64. Oxygen sat high 90's in 2L NC. CHRIS midline patent and intact. On PO abx. Afebrile during the night. Perma cath left chest wall, dressing clean and dry. No c/o chest pain. Refuses turning and repositioning at times, education on skin injury prevention with length of time, patient uncooperative, declined education. Voided urine, incontinent care done. Plan for continue abx. Will endorse to oncoming RN.
--- NOTE | 2023-02-04 07:15 | NUR ---
BOOTMAKER OPENING NOTE RECEIVED PATIENT AWAKE IN BED. AO X4, FORGETFUL , ABLE TO MAKE NEEDS KNOWN. ON O2 2L VIA NC WITH NO S/S OF SOB OR DISTRESS AT THIS TIME . NO C/O OF PAIN AND DISCOMFORT , IV ACCESS CHRIS ML #18G SL, PATENT, INTACT, AND FLUSHING WELL. LCW PERMACATH INTACT. SAFETY PRECAUTIONS IN PLACE: BED LOCKED AND IN LOW POSITION, BED ALARM ON, SIDE RAILS UP X3, CALL LIGHT AND TRAY TABLE WITHIN REACH. WILL CONTINUE TO MONITOR .
[2023-02-04 08:00] VITALS: BP 116/64
[2023-02-04] MEDS: ASPIRIN 81 MG TAB.CHEW PO SCH (08:19)
[2023-02-04] MEDS: FLUCONAZOLE (100 MG) 100 MG TABLET PO SCH (08:20)
[2023-02-04] MEDS: PANTOPRAZOLE 40 MG TABLET.DR PO SCH (08:20)
[2023-02-04] MEDS: LEVOFLOXACIN (250MG) 250 MG TABLET PO SCH (08:20)
[2023-02-04] MEDS: PROSOURCE / PROSTAT (PYXIS) 30 ML UDC GT SCH ×2 (08:21→16:46)
[2023-02-04] MEDS: METOPROLOL TARTRATE 50 MG TABLET PO SCH ×3 (08:33→21:40)
[2023-02-04] MEDS ORDERED: ONDANSETRON HCL 4 MG/5 ML SOLUTION PO PRN (09:00)
[2023-02-04] MEDS ORDERED: GUAIFENESIN 300 MG/15 ML UDC GT PRN (09:00)
[2023-02-04] MEDS ORDERED: LEVOFLOXACIN (250MG) 250 MG TABLET PO SCH (09:00)
[2023-02-04] MEDS ORDERED: HYOSCYAMINE SULFATE 0.125 MG TAB.SUBL SL PRN (09:00)
[2023-02-04] MEDS ORDERED: HYDROCODONE/APAP 5/325MG TABLET PO PRN (09:00)
[2023-02-04] MEDS ORDERED: ASPIRIN EC 81 MG TABLET.DR PO SCH (09:00)
[2023-02-04] MEDS ORDERED: SALINE NASAL SPRAY 0.65% 1 BOTTLE BOTTLE NS PRN (09:00)
[2023-02-04] MEDS ORDERED: OXYBUTYNIN CHLORIDE 5 MG TABLET PO PRN (09:00)
[2023-02-04] MEDS ORDERED: FLUCONAZOLE (100 MG) 100 MG TABLET PO SCH (09:00)
[2023-02-04] MEDS ORDERED: NITROGLYCERIN 0.4 MG/TAB BOTTLE SL PRN (09:00)
[2023-02-04] MEDS: HYDROXYCHLOROQUINE 200 MG TABLET PO SCH (10:00)
[2023-02-04] MEDS ORDERED: ONDANSETRON 4 MG TAB.RAPDIS PO PRN (10:00)
[2023-02-04] MEDS: VIT B CMPLX 3/FA/VIT C/BIOTIN 1 TAB TABLET PO SCH (10:00)
[2023-02-04] MEDS: CHOLECALCIFEROL (VITAMIN D 3) 400 UNIT TABLET PO SCH (10:00)
[2023-02-04] MEDS: busPIRone 5 MG TABLET PO SCH ×2 (10:00→16:46)
[2023-02-04] MEDS: CLOPIDOGREL BISULFATE 75 MG TABLET PO SCH (10:00)
[2023-02-04] MEDS: POLYETHYLENE GLYCOL 3350 17 GM POWD.PACK PO SCH (10:01)
[2023-02-04] MEDS: CLOTRIMAZOLE 1% 15 GM TUBE TP SCH ×2 (10:58→18:13)
--- NOTE | 2023-02-04 12:33 | NUR ---
RN NOTES PATIENT MADE AWARE THAT MORPHINE IV WAS DC AND THE AVAILABLE ONE IS NORCO AND PT SAID THAT SHE DOESNT NORCO AND IT DOESNT HELP HER , HARESH MAN AWARE AND WAITING FOR NEW ORDER
--- NOTE | 2023-02-04 13:50 | NUR ---
RN NOTES DNP MAGDA EVANS MADE AWARE AGAIN THAT PATIENT IS REFUSING THE NORCO AND SHE ONLY WANTS MORPHINE IV
[2023-02-04 16:00] VITALS: BP 142/74
[2023-02-04] MEDS: LORAZEPAM 1 MG TABLET PO PRN (16:46)
--- NOTE | 2023-02-04 18:00 | NUR ---
RN NOTES STILL WAITING FOR HARESH EVANS FOR NEW ORDER OF PAIN MEDICATION AND EXPLAINED OT THE PATIENT
--- NOTE | 2023-02-04 18:49 | NUR ---
RN CLOSING NOTE PATIENT AWAKE IN BED. AO X4, FORGETFUL , ABLE TO MAKE NEEDS KNOWN. ON O2 2L VIA NC WITH NO S/S OF SOB OR DISTRESS AT THIS TIME . C/O OF PAIN AND DISCOMFORT AND PAIN MEDS GIVEN ORDERED , REFUSED NORCO AND WANTS THE MORPHINE IV , ATIVAN IV GIVEN ORDERED , IV ACCESS CHRIS ML #18G SL, PATENT, INTACT, AND FLUSHING WELL. LCW PERMACATH INTACT. ALL DUE MEDS GIVEN ORDERED , STILL WAITING FOR HARESH EVANS FOR THE ORDER OF PAIN MEDICATION , WITH ALSO ORDER FOR EXPLANTATION OF THE PERMACATH . NEEDS CONSENT , SAFETY PRECAUTIONS IN PLACE: BED LOCKED AND IN LOW POSITION, BED ALARM ON, SIDE RAILS UP X3, CALL LIGHT AND TRAY TABLE WITHIN REACH. WILL ENDORSED TO NEXT SHIFT .
--- NOTE | 2023-02-04 19:00 | NUR ---
RN OPENING NOTE RECEIVED PATIENT AWAKE IN BED. AO X3, FORGETFUL. ABLE TO MAKE NEEDS KNOWN. ON O2 2L VIA NC WITH NO SIGNS OF SOB OR DISTRESS AT THIS TIME. IV ACCESS CHRIS ML #18G SL NOTED TO BE PATENT, INTACT AND FLUSHING WELL. LEFT UPPER CHEST PERMACATH NOTED TO BE INTACT. SAFETY PRECAUTIONS IN PLACE: BED LOCKED AND IN LOW POSITION, BED ALARM ON, SIDE RAILS UP X3, CALL LIGHT AND TRAY TABLE WITHIN REACH.
[2023-02-04] MEDS: TRAZODONE 50 MG TABLET PO SCH (21:39)
[2023-02-05] MEDS: LORAZEPAM INJ 2 MG/ML VIAL IV PRN ×3 (01:27→16:58)
--- NOTE | 2023-02-05 01:28 | NUR ---
RN NOTE PATIENT IS RESTLESS AND AGITATED. ATIVAN INJ IS GIVEN ARE ORDERED.
--- NOTE | 2023-02-05 06:32 | NUR ---
RN NOTE PATIENT REFUSED TO BE CHANGED. WAS ENCOURAGING AND CONVINCING PATIENT TO BE CHANGED WITH SEISMIC ENGINEER. OFFERED 5 TIMES PATIENT STILL REFUSED.
--- NOTE | 2023-02-05 06:35 | NUR ---
RN NOTE PATIENT DO NOT WANT TO SIGN THE CONSENT FOR THE PROCEDURE OF THE REMOVAL OF THE CHEST WALL PERMACATH. EDUCATION ABOUT THE IMPORTANCE OF THE REMOVAL OF THE INFECTED PERMACATH IS GIVEN. BEEN OFFERING TO SIGN THE CONSENT 3 TIMES PATIENT STILL REFUSED.
--- NOTE | 2023-02-05 06:37 | NUR ---
RN CLOSING NOTE PATIENT AWAKE IN BED. AO X3, FORGETFUL. ABLE TO MAKE NEEDS KNOWN. ON O2 2L VIA NC WITH NO SIGNS OF SOB OR DISTRESS AT THIS TIME. IV ACCESS CHRIS ML #18G SL NOTED TO BE PATENT, INTACT AND FLUSHING WELL. LEFT UPPER CHEST PERMACATH NOTED TO BE INTACT. ALL DUE MEDICATION IS GIVEN. ALL NEEDS ARE MET. MADE SURE PATIENT IS CLEAN AND COMFORTABLE THROUGH OUT THE NIGHT. SAFETY PRECAUTIONS IN PLACE: BED LOCKED AND IN LOW POSITION, BED ALARM ON, SIDE RAILS UP X3, CALL LIGHT AND TRAY TABLE WITHIN REACH. WILL ENDORSE TO NEXT SHIFT NURSE FOR CONTINUITY OF CARE.
[2023-02-05] MEDS ORDERED: LIDOCAINE 1% INJ 50 ML MDV IJ ONE (07:00)
--- NOTE | 2023-02-05 07:30 | NUR ---
RN OPENING NOTE RECEIVED PATIENT IN BED, ASLEEP. EASILY AWAKENED. NO SIGNS OF ACUTE DISTRESS NOTED. ON O2 INHALATION @2LPM VIA N/C, NO SOB NOTED, BREATHING EVEN AND UNLABORED. NOTED WITH MIDLINE ON RIGHT UPPER ARM #18G, INTACT AND PATENT, SALINE LOCKED. WITH LEFT CHEST PERMACATH INTACT WITH DRESSING C/D/I. SAFETY MEASURE IN PLACE. BED IN LOW AND LOCKED POSITION, SIDE RAILS UP X3, CALL LIGHT PLACED WITHIN EASY REACH. WILL CONTINUE TO MONITOR PATIENT.
[2023-02-05] MEDS: PANTOPRAZOLE 40 MG TABLET.DR PO SCH (07:47)
[2023-02-05] MEDS: LEVOTHYROXINE SODIUM 175 MCG TABLET PO SCH (07:47)
[2023-02-05 08:00] VITALS: BP 111/62
[2023-02-05] MEDS ORDERED: AMITIZA 24 MCG PO SCH (09:00)
[2023-02-05] MEDS: PROSOURCE / PROSTAT (PYXIS) 30 ML UDC GT SCH ×2 (09:00→16:21)
[2023-02-05] MEDS: ASPIRIN 81 MG TAB.CHEW PO SCH (09:03)
[2023-02-05] MEDS: HYDROXYCHLOROQUINE 200 MG TABLET PO SCH (09:03)
[2023-02-05] MEDS: VIT B CMPLX 3/FA/VIT C/BIOTIN 1 TAB TABLET PO SCH (09:03)
[2023-02-05] MEDS: FLUCONAZOLE (100 MG) 100 MG TABLET PO SCH (09:03)
[2023-02-05] MEDS: busPIRone 5 MG TABLET PO SCH ×2 (09:03→16:21)
[2023-02-05] MEDS: CLOPIDOGREL BISULFATE 75 MG TABLET PO SCH (09:03)
[2023-02-05] MEDS: CHOLECALCIFEROL (VITAMIN D 3) 400 UNIT TABLET PO SCH (09:03)
[2023-02-05] MEDS: CLOTRIMAZOLE 1% 15 GM TUBE TP SCH ×2 (09:04→16:21)
[2023-02-05] MEDS: POLYETHYLENE GLYCOL 3350 17 GM POWD.PACK PO SCH (09:04)
[2023-02-05] MEDS: METOPROLOL TARTRATE 50 MG TABLET PO SCH ×2 (09:13→21:00)
[2023-02-05] MEDS: MORPHINE SULFATE INJ 4 MG/ML DISP.SYRIN IV PRN ×2 (11:18→18:31)
--- NOTE | 2023-02-05 12:29 | NUR ---
RN NOTE RECEIVED NEW ORDER TO GIVE LORAZEPAM 1 MG IVP ONCE PRIOR TO EXPLANTATION OF HD CATHETER PER IFEANYI GANDHI NP. ORDER CARRIED OUT. LORAZEPAM GIVEN.
[2023-02-05] MEDS ORDERED: LORAZEPAM INJ 2 MG/ML VIAL IV ONE (12:30)
[2023-02-05] MEDS ORDERED: MORPHINE SULFATE INJ 4 MG/ML DISP.SYRIN IVP ONE (13:10)
[2023-02-05] MEDS: EPOETIN ALFA-EPBX 4,000 UNIT/ML VIAL SQ SCH (14:46)
[2023-02-05 16:00] VITALS: BP 105/52
--- NOTE | 2023-02-05 18:54 | NUR ---
RN CLOSING NOTE PATIENT IN BED, AWAKE. NO SIGNS OF ACUTE DISTRESS NOTED. ON O2 INHALATION @2LPM VIA N/C, NO SOB NOTED, BREATHING EVEN AND UNLABORED. WITH MIDLINE ON RIGHT UPPER ARM #18G, INTACT AND PATENT, SALINE LOCKED. S/P EXPLANTATION OF LEFT CHEST PERMACATH. PRESSURE DRESSING IN PLACE. ALL DUE MEDS GIVEN, TAKEN WELL. SAFETY MEASURE MAINTAINED. BED IN LOW AND LOCKED POSITION, SIDE RAILS UP X3, CALL LIGHT PLACED WITHIN EASY REACH. WILL ENDORSE TO NEXT SHIFT FOR CONTINUITY OF CARE.
[2023-02-05 20:00] VITALS: BP 94/42
--- NOTE | 2023-02-05 21:00 | NUR ---
RN NOTES NOTED 96/45 BLOOD PRESSURE AND HR:64 BLOOD PRESSURE MEDICATION HOLD. WILL CONTINUE TO MONITOR.
--- NOTE | 2023-02-05 21:56 | NUR ---
RN MS OPENING NOTES RECEIVED PATIENT IN BED, A/O X 3 WITH EPISODES OF FORGETFULNESS, ON MODERATE HIGH BACK REST POSITION. HOKED TO OXYGEN VIA NASAL CANNULA AT 4 LPM SATURATING WELL. ON RENAL DIET FOR NOW AVOID NEPHROTOXIC AGENT. ON LINE HOLIDAY, S/P PERM CATHETER REMOVED NOTED SLIGHT BLEEDING RE-ENFORCED DRESSING. WITH IV ACCESS AT CHRIS MIDLINE ON SL NO SWELLING OR INFILTRATION NOTED. KEPT BED ON ,LOWER LOCKED POSITION, KEPT SIDE RAILS UP X 2 ALL THE TIME, KEPT CALL LIGHT WITHIN AT REACH. WILL CONTINUE TO MONITOR.
[2023-02-05] MEDS: TRAZODONE 50 MG TABLET PO SCH ×2 (22:00→22:05)
[2023-02-06] VITALS (57 sets, daily range): BP systolic 76–174; BP diastolic 44–86
--- NOTE | 2023-02-06 01:18 | NUR ---
RN NOTES PATIENT COMPLAIN OF PAIN ON THE OLD PERM CATHETER SITE AND ASKING FOR MORPHINE AND ATIVAN. WITH BP:84/45. DR. MILLER INFORMED WITH ORDER TO GIVE NS 250ML BOLUS MADE AND CARRIED OUT. WILL CONTINUE TO MONITOR
[2023-02-06] MEDS ORDERED: IV NS 0.9% 250 ML IV ONE (01:30)
--- NOTE | 2023-02-06 02:14 | NUR ---
RN MS NOTES AFTER GIVING NS 250 BOLUS THE BLOOD PRESSURE OF THE PATIENT IS 80/50MMHG. DR. MILLER INFORMED WITH ORDER TO TRANSFER PATIENT TO ICU. WILL CONTINUE TO MONITOR
--- NOTE | 2023-02-06 02:50 | NUR ---
RN NOTES RECEIVED REPORT [facility]ON [facility] MARGARITA SUERO.
[2023-02-06] MEDS ORDERED: NOREPINEPHRINE 8 MG in IV NS 0.9% 242 ML IV PRN ×4 (03:00)
--- NOTE | 2023-02-06 03:05 | NUR ---
RN NOTED RECEIVED PT FROM [facility] ACCOMPANIED BY MARGARITA SUERO CNA AND ANOTHER RN. PATIENT A/O X 3 ON NASAL CANULA @ 4LPM SATING AT 97%, AFEBRILE. NO S/S OF DISTRESS NOTED. WITH CHRIS MID LINE, FLUSHED WITH NS NO S/S OF INFILTRATION NOTED. LEFT UPPER CHEST PERMA CATH FOR HD REMOVED FOR LINE HOLIDAY, NO ACTIVE BLEEDING NOTED. V/S TAKEN AND RECORDED. PATIENT REFUSED TO DO BODY ASSESSMENT, EXPLAINED RISK AND BENEFITS OFFERED 3 X, STILL REFUSED. ALL SAFETY PRECAUTION PROVIDED. BED IN LOWEST POSITION, LOCKED. CALL LIGHT WITH IN REACH.
--- NOTE | 2023-02-06 03:14 | NUR ---
GEOLOGICAL DRAFTER NOTES RECEIVED ORDER TO TRANSFER PATIENT TO ICU. PM CARE RENDERED, HOOKED TO OXYGEN VIA NASAL CANULA AT 4LPM SATURATING WELL, ATTACHED TO NETWORK APPLICATIONS SPECIALIST, GAVE REPORT TO SIR. ARSENIO (ICU NURSE), TRANSFER PATIENT TO ICU BED 257 VIA HOSPITAL BED IN STABLE CONDITION .
[2023-02-06] MEDS ORDERED: NOREPINEPHRINE 4 MG/4 ML AMPUL IV ONE (03:21)
[2023-02-06] MEDS: MORPHINE SULFATE INJ 4 MG/ML DISP.SYRIN IV PRN ×2 (04:04→09:40)
[2023-02-06 04:18] LABS: BASOPHILS % (AUTO) 0.5 % (0.0-2.0); EOSINOPHILS % (AUTO) 3.9 % (0.0-6.0); HEMATOCRIT 27 % (33-45); HEMOGLOBIN 8.4 g/dL (11.5-14.8); LYMPHOCYTES # (AUTO) 1.2 K/uL (0.8-4.8); LYMPHOCYTES % (AUTO) 26.2 % (20.0-44.0); MEAN CORPUSCULAR HGB CONC 32 g/dl (31.0-36.0); MEAN CORPUSCULAR VOLUME 104 fL (82-100); MONOCYTES # (AUTO) 0.4 K/uL (0.1-1.30); MONOCYTES % (AUTO) 9.2 % (2.0-12.0); NEUTROPHILS # (AUTO) 2.8 K/uL (1.8-8.9); NEUTROPHILS % (AUTO) 60.2 % (43.0-81.0); PLATELET COUNT (AUTO) 207 K/uL (150-450); RED BLOOD CELL COUNT(AUTO) 2.55 MIL/uL (4.0-5.2); WHITE BLOOD COUNT (AUTO) 4.7 K/uL (4.3-11.0)
[2023-02-06 04:24] LABS: CALCIUM, SERUM 9.1 mg/dL (8.5-10.1); CREATININE 2.9 mg/dL (0.6-1.3); POTASSIUM 5.2 mmol/L (3.5-5.1)
[2023-02-06] MEDS: LORAZEPAM INJ 2 MG/ML VIAL IV PRN ×2 (06:40→20:26)
--- NOTE | 2023-02-06 07:10 | NUR ---
RN NOTES RECEIVED PT ON BED, A/Ox3, ON 2L O2 N/C , O2 SAT WNL, ON TELE SB, HR IN 50'S, ON LEVO AT 0.04 MCG/KG/MIN, FOR BP SUPPORT, IV SITES CDI, SR UP x3, CALL LIGHT WITHIN EASY REACH, BED LOCKED AND IN LOWEST POSITION, CONTINUE TO MONITOR .
[2023-02-06] MEDS: ASPIRIN 81 MG TAB.CHEW PO SCH (08:12)
[2023-02-06] MEDS: CLOPIDOGREL BISULFATE 75 MG TABLET PO SCH (08:12)
[2023-02-06] MEDS: CHOLECALCIFEROL (VITAMIN D 3) 400 UNIT TABLET PO SCH (08:12)
[2023-02-06] MEDS: FLUCONAZOLE (100 MG) 100 MG TABLET PO SCH (08:12)
[2023-02-06] MEDS: LEVOFLOXACIN (250MG) 250 MG TABLET PO SCH (08:12)
[2023-02-06] MEDS: LEVOTHYROXINE SODIUM 175 MCG TABLET PO SCH (08:12)
[2023-02-06] MEDS: VIT B CMPLX 3/FA/VIT C/BIOTIN 1 TAB TABLET PO SCH (08:12)
[2023-02-06] MEDS: POLYETHYLENE GLYCOL 3350 17 GM POWD.PACK PO SCH (08:12)
[2023-02-06] MEDS: PANTOPRAZOLE 40 MG TABLET.DR PO SCH (08:12)
[2023-02-06] MEDS: busPIRone 5 MG TABLET PO SCH ×3 (08:16→16:07)
[2023-02-06] MEDS: METOPROLOL TARTRATE 50 MG TABLET PO SCH ×2 (08:16→21:40)
[2023-02-06] MEDS: CLOTRIMAZOLE 1% 15 GM TUBE TP SCH ×2 (08:25→16:02)
[2023-02-06] MEDS: PROSOURCE / PROSTAT (PYXIS) 30 ML UDC GT SCH ×2 (08:26→16:02)
[2023-02-06] MEDS ORDERED: HYDROCORTISONE SOD SUCCINATE 100 MG/2 ML VIAL IV SCH (09:00)
[2023-02-06] MEDS: HYDROXYCHLOROQUINE 200 MG TABLET PO SCH (09:02)
[2023-02-06] MEDS: methylPREDNISolone SOD SUCC 40 MG/ML VIAL IV SCH ×2 (12:08→20:26)
[2023-02-06] MEDS: ONDANSETRON HCL/PF 4 MG/2 ML VIAL IVP PRN (12:08)
[2023-02-06] MEDS: MEROPENEM 500 MG in IV NS 0.9% 50 ML IV SCH ×2 (13:52→20:26)
--- NOTE | 2023-02-06 16:01 | NUR ---
RN NOTES PT REFUSED AM AN PM CARE
--- NOTE | 2023-02-06 18:41 | NUR ---
RN NOTES PT REMAINS OFF LEVO, BP STABLE, ON 2L O2 N/C , WILL ENDORSE TO HEAD TENNIS PROFESSIONAL NURSE FOR CONTINUITY OF CARE.
[2023-02-06] MEDS: MORPHINE SULFATE INJ 2 MG/ML DISP.SYRIN IV PRN (18:52)
--- NOTE | 2023-02-06 20:45 | NUR ---
ICU/RESISTANCE WELDER PT WAS C/O OF SOME ANXIETY, REQUESTED ATIVAN. NOTIFED CHARGE NURSE WHO GAVE ATIVAN 0.5MH IVP FOR THIS.
[2023-02-06] MEDS: TRAZODONE 50 MG TABLET PO SCH (21:49)
[2023-02-07] VITALS (20 sets, daily range): BP systolic 128–168; BP diastolic 58–87
[2023-02-07] MEDS: MORPHINE SULFATE INJ 2 MG/ML DISP.SYRIN IV PRN ×3 (03:19→20:35)
--- NOTE | 2023-02-07 03:45 | NUR ---
ICU/GREEN BUILDING ARCHITECT PT COMPLAIN OF PAIN TO BACK RATED 10/10, RN GAV3E PRN MORPHINE 2MG IVP FOR THIS. CALL LIGHT WITHIN REACH WILL MONITOR THIS PT
[2023-02-07 05:11] LABS: BASOPHILS % (AUTO) 0.1 % (0.0-2.0); HEMATOCRIT 36 % (33-45); HEMOGLOBIN 11.3 g/dL (11.5-14.8); LYMPHOCYTES # (AUTO) 0.4 K/uL (0.8-4.8); LYMPHOCYTES % (AUTO) 16.3 % (20.0-44.0); MEAN CORPUSCULAR HGB CONC 32 g/dl (31.0-36.0); MEAN CORPUSCULAR VOLUME 103 fL (82-100); MONOCYTES % (AUTO) 0.9 % (2.0-12.0); NEUTROPHILS # (AUTO) 2.1 K/uL (1.8-8.9); NEUTROPHILS % (AUTO) 82.7 % (43.0-81.0); PLATELET COUNT (AUTO) 187 K/uL (150-450); RED BLOOD CELL COUNT(AUTO) 3.48 MIL/uL (4.0-5.2); WHITE BLOOD COUNT (AUTO) 2.5 K/uL (4.3-11.0)
[2023-02-07] MEDS: PANTOPRAZOLE 40 MG TABLET.DR PO SCH (05:27)
[2023-02-07] MEDS: LEVOTHYROXINE SODIUM 175 MCG TABLET PO SCH (05:28)
[2023-02-07] MEDS: methylPREDNISolone SOD SUCC 40 MG/ML VIAL IV SCH ×3 (05:30→20:34)
[2023-02-07] MEDS: ONDANSETRON HCL/PF 4 MG/2 ML VIAL IVP PRN (05:35)
[2023-02-07 05:47] LABS: CREATININE 3.6 mg/dL (0.6-1.3); MAGNESIUM 2.3 mg/dL (1.8-2.4); PHOSPHORUS 6.8 mg/dL (2.5-4.9)
--- NOTE | 2023-02-07 05:53 | NUR ---
ICU/WAREHOUSE ASSEMBLY WORKER PT REQUESTED ZOFRAN FOR NAUSEA, CHARGE NURSE MADE AWARE OF THIS. GAVE PRN IVP OF ZOFRAN. CALL LIGHT WITHIN REACH WILL MONITOR THIS PT
[2023-02-07 06:37] LABS: POTASSIUM 7.4 mmol/L (3.5-5.1)
--- NOTE | 2023-02-07 06:45 | NUR ---
ICU/PAINT ROLLER COVER MACHINE SETTER CLASS C DRIVER BRENNA MILLER CALLED ABOUT AM LABS OF POTASSIUM 7.4, YESTERDAY POTASSIUM WAS 5.2. PT HASN'T HAD HD DUE TO HOLIDAY. WAITING FOR ORDERS HOWEVER IF CLASS C DRIVER DOESN'T CALL BACK THEN WILL PASS ON TO DAY SHIFT NURSE
--- NOTE | 2023-02-07 06:51 | NUR ---
ICU/BLOOD DONOR RECRUITER TRIED TO CALL THE DOT COMPLIANCE SPECIALIST MILLER DIRECTLY HOWEVER CALL WENT TO VOICEMAIL, CALL WAS FOR POTASSIUM 7.4. WILL CALL EXCHANGE FOR ORDERS.
[2023-02-07] MEDS ORDERED: DEXTROSE 50%-WATER 50 ML DISP.SYRIN IV ONE (07:00)
[2023-02-07] MEDS ORDERED: SODIUM BICARBONATE SYR 50 MEQ/50 ML DISP.SYRIN IV ONE (07:00)
[2023-02-07] MEDS ORDERED: INSULIN REGULAR, HUMAN 100 UNIT/ML 10 ML VIAL IV ONE ×2 (07:00→22:00)
[2023-02-07] MEDS ORDERED: ALBUTEROL FS 2.5 MG/3 ML VIAL.NEB NEB ONE (07:00)
--- NOTE | 2023-02-07 07:05 | NUR ---
RN NOTES RECEIVED PT ON BED, A/Ox3, ON 2L O2 N/C , O2 SAT WNL, ON TELE SB, HR IN 50'S, IV SITES CDI, SR UP x3, CALL LIGHT WITHIN EASY REACH, BED LOCKED AND IN LOWEST POSITION, CONTINUE TO MONITOR .
[2023-02-07] MEDS ORDERED: SODIUM POLYSTYRENE SULFONATE 15 G/60 ML BOTTLE PO ONE ×2 (08:00→22:00)
[2023-02-07] MEDS ORDERED: Calcium Gluconate 1GM/10ML 4.65 MEQ in IV NS 0.9% 100 ML IV ONE (08:00)
[2023-02-07] MEDS: MEROPENEM 500 MG in IV NS 0.9% 50 ML IV SCH ×2 (08:05→20:34)
[2023-02-07] MEDS: METOPROLOL TARTRATE 50 MG TABLET PO SCH ×2 (08:23→20:35)
[2023-02-07] MEDS: ASPIRIN 81 MG TAB.CHEW PO SCH (08:23)
[2023-02-07] MEDS: HYDROXYCHLOROQUINE 200 MG TABLET PO SCH (08:24)
[2023-02-07] MEDS: POLYETHYLENE GLYCOL 3350 17 GM POWD.PACK PO SCH (08:24)
[2023-02-07] MEDS: CLOTRIMAZOLE 1% 15 GM TUBE TP SCH ×2 (08:24→16:03)
[2023-02-07] MEDS: busPIRone 5 MG TABLET PO SCH ×2 (08:24→16:04)
[2023-02-07] MEDS: CHOLECALCIFEROL (VITAMIN D 3) 400 UNIT TABLET PO SCH (08:24)
[2023-02-07] MEDS: CLOPIDOGREL BISULFATE 75 MG TABLET PO SCH (08:24)
[2023-02-07] MEDS: VIT B CMPLX 3/FA/VIT C/BIOTIN 1 TAB TABLET PO SCH (08:24)
[2023-02-07] MEDS: PROSOURCE / PROSTAT (PYXIS) 30 ML UDC GT SCH ×2 (08:24→16:03)
[2023-02-07] MEDS: FLUCONAZOLE (100 MG) 100 MG TABLET PO SCH (08:27)
[2023-02-07] MEDS ORDERED: LIDOCAINE 1% INJ 50 ML MDV IJ ONE (09:30)
[2023-02-07] MEDS ORDERED: HEPARIN SODIUM, PORCINE 1,000 UNIT/ML VIAL IV ONE (09:30)
[2023-02-07] MEDS: LORAZEPAM 1 MG TABLET PO PRN ×2 (10:00→10:04)
[2023-02-07] MEDS ORDERED: SODIUM POLYSTYRENE SULF. PWD 15 GM UDC PO ONE (10:00)
[2023-02-07] MEDS ORDERED: KETOROLAC TROMETHAMINE INJ 30 MG/ML VIAL IV ONE (12:00)
--- NOTE | 2023-02-07 12:30 | NUR ---
RN NOTES [place] IS NON COMPLIANT WITH CARE , AND PO INTAKE , WANTS TO EAT REGULAR FOOD , EDUCATION PROVIDED TO PT REGARDING HOW IMPORTANT IS TO FOLLOW PLAN OF CARE , PT STILL REFUSING . DR ALMAGUER NOTIFIED REGARDING K=7.1 , PT WILL RECEIVE HD .CONTINUE TO MONITOR
[2023-02-07 12:57] LABS: CALCIUM, SERUM 9.2 mg/dL (8.5-10.1); CREATININE 3.8 mg/dL (0.6-1.3)
[2023-02-07 13:08] LABS: POTASSIUM 7.1 mmol/L (3.5-5.1)
[2023-02-07] MEDS: EPOETIN ALFA-EPBX 4,000 UNIT/ML VIAL SQ SCH (15:00)
--- NOTE | 2023-02-07 15:22 | NUR ---
RN NOTES PT RECEIVING HD AT , VSS STABLE , CONTINUE TO MONITOR.
--- NOTE | 2023-02-07 16:19 | NUR ---
RN NOTES PT REFUSING ACCU CHECKS , NONCOMPLIANT WITH FOOD AND CARE .
[2023-02-07] MEDS ORDERED: HYDROCODONE/APAP 5/325MG TABLET PO PRN (17:30)
[2023-02-07] MEDS ORDERED: HYDROCODONE/APAP 10/325MG TABLET PO PRN (17:30)
--- NOTE | 2023-02-07 18:10 | NUR ---
RN NOTES PT TRANSFER TO ROOM 117-1 TELE BED VIA ACLS PROTOCAL IN STABLE CONDITION WITH ALL HER BELONGINGS . REPORT GIVEN TO ELIESER AVILA FOR CONTINUITY OF CARE
--- NOTE | 2023-02-07 18:15 | NUR ---
BRICK KILN BURNER NOTE: RECEIVED PT FROM ANASTACIO AVILA. PT IS AOX3. ABLE TO MAKE NEEDS KNOWN. ON 2LPM NC. NO RESP DISTRESS NOTED. CHRIS TURCIOS. PATENT AND INTACT. DINNER SERVED ORDERED. CURRENT VITALS TEMP 97.7, RESP 18, B/P 132/68, P 67. CALL LIGHT WITHIN REACH.
--- NOTE | 2023-02-07 18:43 | NUR ---
TEL RN NOTE: DR. MAN NOTIFIED FOR K 7.1. WITH NEW ORDER AT 2200 K[address] 20 GRAMS PO X1, INSULIN REGULAR 8U IVPX1 AND D50 IVP X 1. NOTIFIED DR[address] BRODY ALMAGUER PER DR. MAN ORDER.
--- NOTE | 2023-02-07 19:13 | NUR ---
TELE CLOSING NOTE: PT AOX3. ABLE TO MAKE NEEDS KNOWN. IN STABLE CONDITION AT THIS TIME.
--- NOTE | 2023-02-07 19:30 | NUR ---
RN NOTE Report received from Jorge AVILA, patient in bed, AO x 3, in no acute distress, saturation at 94% on room air. SR on the monitor, HR is 64. CHRIS midline patent and flushing well. saline locked. Safety measures in place, bed is locked and at lowest position, HOB elevated, call light within reach of patient. Will continue to monitor and reassess.
--- NOTE | 2023-02-07 19:32 | NUR ---
RN NOTE PER JAVIER AVILA, HEPARIN 6000 UNITS IV SCHEDULED AT 0930 WAS GIVEN BY ROOF BOLTING COAL MINER DURING PROCEDURE.
[2023-02-07] MEDS: LORAZEPAM INJ 2 MG/ML VIAL IV PRN (21:29)
[2023-02-07] MEDS ORDERED: DEXTROSE 50%-WATER 50 ML DISP.SYRIN IVP ONE (22:00)
[2023-02-07] MEDS: TRAZODONE 50 MG TABLET PO SCH (22:15)
[2023-02-08 01:00] VITALS: BP 156/72
[2023-02-08] MEDS: MORPHINE SULFATE INJ 2 MG/ML DISP.SYRIN IV PRN ×3 (02:42→18:09)
[2023-02-08 04:00] VITALS: BP 155/83
[2023-02-08] MEDS: methylPREDNISolone SOD SUCC 40 MG/ML VIAL IV SCH ×3 (04:25→21:22)
[2023-02-08] MEDS: ONDANSETRON HCL/PF 4 MG/2 ML VIAL IVP PRN (05:54)
[2023-02-08 07:08] LABS: HEMATOCRIT 30 % (33-45); HEMOGLOBIN 9.5 g/dL (11.5-14.8); LYMPHOCYTES # (AUTO) 0.3 K/uL (0.8-4.8); MEAN CORPUSCULAR HGB CONC 32 g/dl (31.0-36.0); MEAN CORPUSCULAR VOLUME 103 fL (82-100); MONOCYTES # (AUTO) 0.2 K/uL (0.1-1.30); MONOCYTES % (AUTO) 3.5 % (2.0-12.0); NEUTROPHILS % (AUTO) 92.5 % (43.0-81.0); PLATELET COUNT (AUTO) 237 K/uL (150-450); WHITE BLOOD COUNT (AUTO) 6.5 K/uL (4.3-11.0)
[2023-02-08 07:15] LABS: CALCIUM, SERUM 8.9 mg/dL (8.5-10.1); CREATININE 2.9 mg/dL (0.6-1.3); POTASSIUM 5.9 mmol/L (3.5-5.1)
--- NOTE | 2023-02-08 07:20 | NUR ---
RN NOTE RECEIVED PATIENT IN BED RESTING ALERT ORIENTED X3 VERBALLY RESPONSIVE ON 3L OXYGEN VIA NASAL CANNULA O2:96% IV ACCESS ON RIGHT UPPER ARM MIDLINE INTACT PATENT AND RIGHT GROIN PERMCATH INTACT PATENT,SAFETY MEASURE IMPLEMENT BED IN LOW POSITION AND LOCKED,HEAD OF THE BED ELEVATED,CALL LIGHT WITHIN REACH CONTINUE TO MONITOR.
[2023-02-08] MEDS: PANTOPRAZOLE 40 MG TABLET.DR PO SCH (07:26)
[2023-02-08] MEDS: LEVOTHYROXINE SODIUM 175 MCG TABLET PO SCH (07:26)
[2023-02-08 08:00] VITALS: BP 159/91
[2023-02-08] MEDS: CHOLECALCIFEROL (VITAMIN D 3) 400 UNIT TABLET PO SCH (08:34)
[2023-02-08] MEDS: FLUCONAZOLE (100 MG) 100 MG TABLET PO SCH (08:34)
[2023-02-08] MEDS: CLOPIDOGREL BISULFATE 75 MG TABLET PO SCH (08:34)
[2023-02-08] MEDS: HYDROXYCHLOROQUINE 200 MG TABLET PO SCH (08:34)
[2023-02-08] MEDS: busPIRone 5 MG TABLET PO SCH ×2 (08:34→17:13)
[2023-02-08] MEDS: ASPIRIN 81 MG TAB.CHEW PO SCH (08:34)
[2023-02-08] MEDS: MEROPENEM 500 MG in IV NS 0.9% 50 ML IV SCH ×2 (08:35→21:22)
[2023-02-08] MEDS: METOPROLOL TARTRATE 50 MG TABLET PO SCH ×3 (08:35→21:19)
[2023-02-08] MEDS: POLYETHYLENE GLYCOL 3350 17 GM POWD.PACK PO SCH ×2 (08:35→09:00)
[2023-02-08] MEDS: PROSOURCE / PROSTAT (PYXIS) 30 ML UDC GT SCH ×3 (08:39→17:00)
[2023-02-08] MEDS: CLOTRIMAZOLE 1% 15 GM TUBE TP SCH ×2 (08:39→17:13)
[2023-02-08] MEDS: VIT B CMPLX 3/FA/VIT C/BIOTIN 1 TAB TABLET PO SCH (08:39)
--- NOTE | 2023-02-08 09:24 | NUR ---
RN NOTE MORPHINE 2MG/1ML GIVEN FOR PAIN 9 OUT OF 10 CONTINUE TO MONITOR.
[2023-02-08] MEDS: LORAZEPAM INJ 2 MG/ML VIAL IV PRN ×2 (11:48→20:16)
[2023-02-08 12:00] VITALS: BP 144/59
[2023-02-08 16:00] VITALS: BP 128/69
--- NOTE | 2023-02-08 18:09 | NUR ---
RN NOTE MORPHINE 2MG/1MLPRN GIVEN FOR PAIN 9 OUT OF 10 CONTINUE TO MONITOR.
--- NOTE | 2023-02-08 18:33 | NUR ---
RN NOTE PATIENT REMAINS ALERT ORIENTED X3 VERBALLY RESPONSIVE NO SOB NOT ACUTE DISTRESS NOTED ALL DUE MEDS GIVEN MD ORDERED KEPT CLEAN AND DRY ALL THE TIME,DIALYSIS DONE TODAY 3L FLUID OUT PUT,TURNED AND REPOSITIONED EVERY 2 HOURS,KEPT CALL LIGHT WITHIN REACH ALL NEEDS MET ENDORSE NEXT COMING SHIFT FOR CONTINUATION OF CARE/
[2023-02-08 20:00] VITALS: BP 113/60
[2023-02-08] MEDS: TRAZODONE 50 MG TABLET PO SCH (21:19)
[2023-02-09] VITALS: BP 120/60
[2023-02-09] MEDS: MORPHINE SULFATE INJ 2 MG/ML DISP.SYRIN IV PRN ×2 (03:15→11:46)
[2023-02-09 04:00] VITALS: BP 120/75
--- NOTE | 2023-02-09 04:56 | NUR ---
MOTOR ROOM CONTROLLER opening notes Pt resting in bed, awake, breathing even and unlabored, on RA, afebrile, skin warm and dry to touch, SYMONE ML CDI, no s/s of acute distress, will continue to monitor
[2023-02-09] MEDS: methylPREDNISolone SOD SUCC 40 MG/ML VIAL IV SCH ×3 (05:08→21:43)
--- NOTE | 2023-02-09 06:15 | NUR ---
PEER SUPPORT SPECIALIST closing note Pt resting in bed, asleep, easy to arouse, breathing even and unlabored, on RA, afebrile, skin warm and dry to touch, SYMONE ML SL, CDI, R femoral permacath intact, pt is on ATB tx, tolerating well, all due meds given per MD orders, tolerated well, all basic needs met and anticipated, all safety measures in place, call light with in reach, no s/s of acute distress, will continue to monitor
[2023-02-09 06:16] LABS: CALCIUM, SERUM 8.6 mg/dL (8.5-10.1); CREATININE 2.7 mg/dL (0.6-1.3); POTASSIUM 5.8 mmol/L (3.5-5.1)
--- NOTE | 2023-02-09 07:50 | NUR ---
rn opening note Pt resting in bed, asleep, easy to arouse, breathing even and unlabored, on RA, afebrile, skin warm and dry to touch, SYMONE ML SL, CDI, R femoral permacath intact, all safety measures in place, call light with in reach, no s/s of acute distress, will continue to monitor
[2023-02-09] MEDS: LEVOTHYROXINE SODIUM 175 MCG TABLET PO SCH (08:25)
[2023-02-09] MEDS: PANTOPRAZOLE 40 MG TABLET.DR PO SCH (08:25)
[2023-02-09] MEDS: ASPIRIN 81 MG TAB.CHEW PO SCH (09:36)
[2023-02-09] MEDS: FLUCONAZOLE (100 MG) 100 MG TABLET PO SCH (09:36)
[2023-02-09] MEDS: busPIRone 5 MG TABLET PO SCH ×2 (09:36→16:54)
[2023-02-09] MEDS: HYDROXYCHLOROQUINE 200 MG TABLET PO SCH (09:36)
[2023-02-09] MEDS: CLOPIDOGREL BISULFATE 75 MG TABLET PO SCH (09:36)
[2023-02-09] MEDS: POLYETHYLENE GLYCOL 3350 17 GM POWD.PACK PO SCH (09:37)
[2023-02-09] MEDS: VIT B CMPLX 3/FA/VIT C/BIOTIN 1 TAB TABLET PO SCH (09:37)
[2023-02-09] MEDS: CHOLECALCIFEROL (VITAMIN D 3) 400 UNIT TABLET PO SCH (09:37)
[2023-02-09] MEDS: METOPROLOL TARTRATE 50 MG TABLET PO SCH ×2 (09:38→21:43)
[2023-02-09] MEDS: Z GUARD REMEDY 4 OZ OINT TP PRN (09:47)
[2023-02-09] MEDS: PROSOURCE / PROSTAT (PYXIS) 30 ML UDC GT SCH ×2 (09:47→16:56)
[2023-02-09] MEDS: LORAZEPAM INJ 2 MG/ML VIAL IV PRN (09:56)
[2023-02-09] MEDS: CLOTRIMAZOLE 1% 15 GM TUBE TP SCH ×2 (09:59→17:24)
[2023-02-09] MEDS ORDERED: DEXTROSE 50%-WATER 50 ML DISP.SYRIN IV PRN (11:00)
[2023-02-09 11:11] VITALS: BP 134/71
[2023-02-09] MEDS: BLOOD SUGAR DIAGNOSTIC 1 EACH STRIP IN SCH ×3 (12:02→21:43)
[2023-02-09] MEDS: INSULIN REGULAR, HUMAN 100 UNIT/ML 3 ML VIAL SQ PRN ×3 (12:13→21:49)
[2023-02-09 12:27] VITALS: BP 134/73
--- NOTE | 2023-02-09 13:30 | NUR ---
rn notes Patient requested to change diet from chopped fine reanl diet to regular renal. Notified Ronny Software Consultant, changed order in the system. No issues noted.
[2023-02-09] MEDS ORDERED: EPOETIN ALFA-EPBX 10,000 UNIT/ML VIAL IV ONE (15:00)
[2023-02-09 16:14] VITALS: BP 157/81
--- NOTE | 2023-02-09 17:40 | NUR ---
Rn notes Patient refused insulin coverage, explained risks and benefits, still refusing. will monitor. Ronny AREA CLEANER notified.
--- NOTE | 2023-02-09 17:43 | NUR ---
rn notes Patient started on dialysis, will monitor for any adverse reactio.n
--- NOTE | 2023-02-09 18:39 | NUR ---
rn closing note Patient awake in bed, a/o x4. On RA,breathing even and unlabored, afebrile, skin warm and dry to touch. On tele monitor with current reading SR HR 61. CHRIS ML SL, CDI, R femoral permacath intact,currently on dialysis at this time. Due meds were given, kept patient comfortable.Patient refused to change her diaper and changed sacral dressing. All safety measures in place, call light with in reach, no s/s of acute distress, endorsed to night nurse.
--- NOTE | 2023-02-09 19:15 | NUR ---
COST CONSULTANT opening notes Pt resting in bed, awake, A&Ox3, breathing even and unlabored, on RA, afebrile, skin warm and dry to touch, SYMONE ML CDI, no s/s of acute distress, will continue to monitor
[2023-02-09 20:00] VITALS: BP 145/30
[2023-02-09] MEDS: TRAZODONE 50 MG TABLET PO SCH (21:42)
[2023-02-10] VITALS: BP 151/71
[2023-02-10] MEDS: MORPHINE SULFATE INJ 2 MG/ML DISP.SYRIN IV PRN ×2 (01:36→19:54)
[2023-02-10 04:00] VITALS: BP 151/71
[2023-02-10] MEDS: methylPREDNISolone SOD SUCC 40 MG/ML VIAL IV SCH ×3 (05:25→21:52)
[2023-02-10] MEDS: LORAZEPAM 1 MG TABLET PO PRN ×2 (06:24→21:51)
[2023-02-10] MEDS: LORAZEPAM INJ 2 MG/ML VIAL IV PRN ×2 (06:31→15:33)
--- NOTE | 2023-02-10 07:00 | NUR ---
HAND TUFTER closing note Pt resting in bed, awake, easy to arouse, breathing even and unlabored, afebrile, skin warm and dry to touch, SYMONE TURCIOS SL, CDI, R femoral permacath intact, pt is on ATB tx, tolerating well, all due meds given per MD orders, tolerated well, all basic needs met and anticipated, all safety measures in place, call light with in reach, no s/s of acute distress, will continue to monitor
--- NOTE | 2023-02-10 07:30 | NUR ---
POLE INSPECTOR AM NOTES PATIENT IN BED, DEEPLY ASLEEP, AROUSES TO NAME AND TOUCH, VERY LETHARGIC, ON 3 L O2, NASAL CANULA, NO SOB, OR DISCOMFORT NOTED. RESPIRATION UNLABORED. O2 SAT 95%, SR HR 62 ON MONITOR. NO SIGNS OF PAIN, NO GRIMACINGS. IV ACCESS CHRIS MIDLINE G 18. FLUSHES WELL, SITE CLEAR. RT FEMORAL HD ACCESS, CDI DRESSING. SACRAL DTI, WILL PERFORM PRESCRIBE SKIN CARE MANAGEMENT IN A WHILE. RENAL DIET, ASSIST TIN TURNING AND REPOSITIONING Q 2HOURS. SAFETY MEASURES IN PLACE, HEAD OF BED ELEVATED, BED IN LOWEST AND LOCKED POSITION. WILL CONTINUE TO MONITOR
[2023-02-10 07:41] LABS: CALCIUM, SERUM 8.8 mg/dL (8.5-10.1); CREATININE 2.3 mg/dL (0.6-1.3); POTASSIUM 5.1 mmol/L (3.5-5.1)
[2023-02-10] MEDS: PANTOPRAZOLE 40 MG TABLET.DR PO SCH (07:53)
[2023-02-10] MEDS: BLOOD SUGAR DIAGNOSTIC 1 EACH STRIP IN SCH ×4 (07:53→22:03)
[2023-02-10] MEDS: LEVOTHYROXINE SODIUM 175 MCG TABLET PO SCH (07:53)
[2023-02-10 08:00] VITALS: BP 140/64
[2023-02-10] MEDS: INSULIN REGULAR, HUMAN 100 UNIT/ML 3 ML VIAL SQ PRN ×2 (08:08→22:04)
[2023-02-10] MEDS: FLUCONAZOLE (100 MG) 100 MG TABLET PO SCH (09:00)
[2023-02-10] MEDS: HYDROXYCHLOROQUINE 200 MG TABLET PO SCH (09:00)
[2023-02-10] MEDS: ASPIRIN 81 MG TAB.CHEW PO SCH (09:00)
[2023-02-10] MEDS: PROSOURCE / PROSTAT (PYXIS) 30 ML UDC GT SCH ×2 (09:00→16:14)
[2023-02-10] MEDS: POLYETHYLENE GLYCOL 3350 17 GM POWD.PACK PO SCH (09:00)
[2023-02-10] MEDS: CHOLECALCIFEROL (VITAMIN D 3) 400 UNIT TABLET PO SCH (09:00)
[2023-02-10] MEDS: CLOPIDOGREL BISULFATE 75 MG TABLET PO SCH (09:00)
[2023-02-10] MEDS: VIT B CMPLX 3/FA/VIT C/BIOTIN 1 TAB TABLET PO SCH (09:00)
[2023-02-10] MEDS: busPIRone 5 MG TABLET PO SCH ×2 (09:00→16:14)
[2023-02-10] MEDS: METOPROLOL TARTRATE 50 MG TABLET PO SCH ×2 (09:00→21:52)
--- NOTE | 2023-02-10 09:30 | NUR ---
RN NOTES ALL AM MEDICATIONS REFUSED BY PATIENT
[2023-02-10] MEDS: CLOTRIMAZOLE 1% 15 GM TUBE TP SCH ×2 (09:42→16:14)
[2023-02-10] MEDS ORDERED: SODIUM POLYSTYRENE SULF. PWD 15 GM UDC PO ONE (11:00)
--- NOTE | 2023-02-10 11:38 | NUR ---
RN NOTES ACCUCHECK BS 223 MG/DL. PATIENT REFUSED INSULIN AND ALL MEDICATIONS SHE SAID
[2023-02-10 12:00] VITALS: BP 150/86
[2023-02-10] MEDS: EPOETIN ALFA-EPBX 4,000 UNIT/ML VIAL SQ SCH (15:00)
[2023-02-10 16:00] VITALS: BP 150/75
--- NOTE | 2023-02-10 18:21 | NUR ---
CERTIFIED NURSE PRACTITIONER CLOSING NOTES PATIENT IN BED, DEEPLY ASLEEP, AROUSES TO NAME AND TOUCH, VERY LETHARGIC, ON 3 L O2, NASAL CANULA, NO SOB, OR DISCOMFORT NOTED. RESPIRATION UNLABORED. O2 SAT 95%, SR HR 66 ON MONITOR. NO SIGNS OF PAIN, NO GRIMACINGS. IV ACCESS CHRIS MIDLINE G 18. FLUSHES WELL, SITE CLEAR. RT FEMORAL HD ACCESS, CDI DRESSING. PERFORMED PRESCRIBE SKIN CARE MANAGEMENT AND PM CARE. RENAL DIET, ASSISTED IN TURNING AND REPOSITIONING Q 2HOURS. SAFETY MEASURES IN PLACE, HEAD OF BED ELEVATED, BED IN LOWEST AND LOCKED POSITION. ENDORSE TO NEXT SHIFT FOR GUILLERMINA. PATIENT REFUSED ALL MEDICATIONS THIS SHIFT. DR MAGDA EVANS AWARE. PATIENT ONLY WANTS HER ATIVAN AND MORPHINE SULFATE REFUSED PM ACCUCHECK PATIENT FOR PERMA CATH PLACEMENT TOMORROW C/O DR. HARRIS. NPO POST MIDNIGHT. FOLLOW UP ON CONSENT PLEASE.
--- NOTE | 2023-02-10 19:31 | NUR ---
RN OPENING NOTES RECEIVED PATIENT IN BED, SITTING POSITION. AWAKE, ALERT/ORIENTED X 4 AND VERBALLY RESPONSIVE. ON O2 AT 3L/MIN VIA NASAL CANULA AND PT TOLERATED WELL. BREATHING EVEN AND UNLABORED. IV ACCESS CHRIS MIDLINE INTACT AND PATENT. NO S/S OF INFILTRATIONS. NOTED RT FEMORAL HD ACCESS, WITH SCANT AMOUNT OF BLEEDING. COVERED WITH DRESSING. NO C/O PAIN OR DISCOMFORT. NO ACUTE DISTRESS. PUREWICK IN PLACE. ALL SAFETY MEASURES IN PLACE. HEAD OF BED ELEVATED. BED IN LOWEST POSITION AND LOCKED. PLACE CALL LIGHT WITH IN REACH. WILL CONTINUE TO MONITOR
[2023-02-10 20:00] VITALS: BP 146/75
--- NOTE | 2023-02-10 20:11 | NUR ---
RN NOTES: PT C/O SEVERE GENERALIZED PAIN ALL OVER HER BODY. MORPHINE GIVEN PRN ORDER. PT TOLERATED WELL. WILL CONTINUE TO MONITOR
[2023-02-10] MEDS: TRAZODONE 50 MG TABLET PO SCH (21:51)
--- NOTE | 2023-02-10 22:05 | NUR ---
RN NOTES: PT C/O ANXIETY. ATIVAN 1 MG TAB GIVEN. PT TOLERATED WELL. PT'S BLOOD SUGAR 273. PT STRONGLY REFUSING THE INSULIN COVERAGE. OFFERED SEVERAL TIMES, EXPLAINED THE RISK AND BENEFITS BUT STILL REFUSED. WILL CONTINUE TO MONITOR
[2023-02-11] VITALS: BP 132/60
[2023-02-11 04:00] VITALS: BP 133/72
[2023-02-11] MEDS: methylPREDNISolone SOD SUCC 40 MG/ML VIAL IV SCH ×3 (05:18→21:03)
--- NOTE | 2023-02-11 06:44 | NUR ---
RN CLOSING NOTES PATIENT IN BED, SITTING POSITION. AWAKE, ALERT/ORIENTED X 4 AND VERBALLY RESPONSIVE. ON O2 AT 3L/MIN VIA NASAL CANULA AND PT TOLERATED WELL. O2 SAT 97%. BREATHING EVEN AND UNLABORED. IV ACCESS CHRIS MIDLINE INTACT AND PATENT. NO S/S OF INFILTRATIONS. NOTED RT FEMORAL HD ACCESS, NO C/O PAIN OR DISCOMFORT. NO ACUTE DISTRESS. PUREWICK IN PLACE. ALL DUE MEDS GIVEN ORDERED. PT REMAIN NPO AFTER MIDNIGHT. ALL SAFETY MEASURES IN PLACE. HEAD OF BED ELEVATED. BED IN LOWEST POSITION AND LOCKED. PLACE CALL LIGHT WITH IN REACH. WILL ENDORSE TO MORNING SHIFT NURSE.
--- NOTE | 2023-02-11 07:10 | NUR ---
MS OPENING NOTES RECEIVED PATIENT IN BED, SLEEPING BUT VERBALLY RESPONSIVE. ON O2 AT 3L/MIN VIA NASAL CANULA AND PT TOLERATED WELL. BREATHING EVEN AND UNLABORED. IV ACCESS CHRIS MIDLINE INTACT AND PATENT. NO S/S OF INFILTRATIONS. NOTED RT FEMORAL HD ACCESS COVERED WITH DRESSING. NO C/O PAIN OR DISCOMFORT. NO ACUTE DISTRESS. PUREWICK IN PLACE. ALL SAFETY MEASURES IN PLACE. HEAD OF BED ELEVATED. BED IN LOWEST POSITION AND LOCKED. PLACE CALL LIGHT WITH IN REACH. WILL CONTINUE TO MONITOR
[2023-02-11 07:29] LABS: CALCIUM, SERUM 8.8 mg/dL (8.5-10.1); CREATININE 2.8 mg/dL (0.6-1.3); POTASSIUM 5.7 mmol/L (3.5-5.1)
--- NOTE | 2023-02-11 07:30 | NUR ---
RN NOTE BS 284. PT REFUSE REGULAR INSULIN. EXPLAINED RISK AND BENEFITS X3. CONT TO REFUSED. AFTER 1HR REEDUCATED WITH RISK AND BENEFITS X 3. CONT TO REFUSE X3. MADE AWARE.
[2023-02-11] MEDS: BLOOD SUGAR DIAGNOSTIC 1 EACH STRIP IN SCH ×4 (07:48→22:07)
[2023-02-11] MEDS: LEVOTHYROXINE SODIUM 175 MCG TABLET PO SCH (07:54)
[2023-02-11] MEDS: PANTOPRAZOLE 40 MG TABLET.DR PO SCH (07:54)
[2023-02-11 08:00] VITALS: BP 146/66
[2023-02-11] MEDS: PROSOURCE / PROSTAT (PYXIS) 30 ML UDC GT SCH ×2 (08:03→17:00)
[2023-02-11] MEDS: CHOLECALCIFEROL (VITAMIN D 3) 400 UNIT TABLET PO SCH (08:04)
[2023-02-11] MEDS: CLOPIDOGREL BISULFATE 75 MG TABLET PO SCH ×2 (08:04→09:00)
[2023-02-11] MEDS: FLUCONAZOLE (100 MG) 100 MG TABLET PO SCH (08:04)
[2023-02-11] MEDS: VIT B CMPLX 3/FA/VIT C/BIOTIN 1 TAB TABLET PO SCH (08:04)
[2023-02-11] MEDS: POLYETHYLENE GLYCOL 3350 17 GM POWD.PACK PO SCH (08:05)
[2023-02-11] MEDS: busPIRone 5 MG TABLET PO SCH ×2 (08:08→17:00)
[2023-02-11] MEDS: ASPIRIN 81 MG TAB.CHEW PO SCH (08:08)
[2023-02-11] MEDS: CLOTRIMAZOLE 1% 15 GM TUBE TP SCH ×2 (08:10→17:33)
[2023-02-11] MEDS: HYDROXYCHLOROQUINE 200 MG TABLET PO SCH (08:11)
[2023-02-11] MEDS: METOPROLOL TARTRATE 50 MG TABLET PO SCH ×2 (08:19→22:35)
--- NOTE | 2023-02-11 09:11 | NUR ---
RN NOTE: HOLD ASPIRIN AND PLAVIX DUE TO UPCOMING SURGERY. NO BLEEDING NOTED AT THIS TIME.
[2023-02-11] MEDS ORDERED: IOHEXOL 50 ML IV ONE (09:21)
[2023-02-11] MEDS ORDERED: HEPARIN SODIUM, PORCINE 1,000 UNIT/ML VIAL ONE ×2 (09:22→22:35)
[2023-02-11] MEDS ORDERED: LIDOCAINE HCL/MPF 1% 30 ML VIAL IJ ONE (09:22)
--- NOTE | 2023-02-11 12:00 | NUR ---
RN NOTE BS 272. PT REFUSE REGULAR INSULIN. EXPLAINED RISK AND BENEFITS. CONT TO REFUSED. AFTER 1HR REEDUCATED WITH RISK AND BENEFITS X 3. CONT TO REFUSE X3. MADE AWARE.
[2023-02-11] MEDS: MORPHINE SULFATE INJ 2 MG/ML DISP.SYRIN IV PRN (12:19)
--- NOTE | 2023-02-11 14:51 | NUR ---
RN NOTE: PT PICKED UP BY SURGICAL TEAM FOR PERMACATH PLACEMENT. IN STABLE CONDITION.
[2023-02-11] MEDS ORDERED: DEXAMETHASONE SOD PHOSPHATE 10 MG/ML VIAL ONE (15:10)
[2023-02-11] MEDS ORDERED: FAMOTIDINE/PF INJ 20 MG/2 ML VIAL IV ONE (15:11)
[2023-02-11] MEDS ORDERED: CLINDAMYCIN 900 MG/6 ML VIAL ONE (15:11)
[2023-02-11] MEDS ORDERED: ATROPINE SULFATE 1 MG/10 ML DISP.SYRIN ONE (16:49)
--- NOTE | 2023-02-11 17:20 | NUR ---
RN NOTE: PT CAME BACK FROM SURGERY. ASSISTED BY SURGICAL TEAM SOFIA AVILA. PT SLEEPING V/S 145/77 HR 52 RESP 14 O2SAT 98 TEMP 97.6. SURGICAL TEAM D/C THE R FEMORAL CATH. PT MONITORED FOR BLEEDING NON NOTED AT THIS TIME. R CHEST PERMA CATH INTACT. NO BLEEDING NOTED. CALL LIGHT WITHIN REACH.
[2023-02-11 17:31] VITALS: BP 145/77
--- NOTE | 2023-02-11 17:34 | NUR ---
RN NOTE: 1700 PO MEDS. ON HOLD. PT STILL DROWSY FROM SURGERY
--- NOTE | 2023-02-11 18:27 | NUR ---
RN CLOSING NOTES PATIENT IN BED, SITTING POSITION. AWAKE, ALERT/ORIENTED X 4 AND VERBALLY RESPONSIVE. ON O2 AT 3L/MIN VIA NASAL CANULA AND PT TOLERATED WELL. O2 SAT 97%. BREATHING EVEN AND UNLABORED. IV ACCESS CHRIS MIDLINE INTACT AND PATENT. NO S/S OF INFILTRATIONS. D/C FEMORAL CATH. R PERMA CATH INTACT.NO C/O PAIN OR DISCOMFORT. NO ACUTE DISTRESS. PUREWICK IN PLACE. ALL DUE MEDS GIVEN ORDERED. PT REMAIN NPO AFTER MIDNIGHT. ALL SAFETY MEASURES IN PLACE. HEAD OF BED ELEVATED. BED IN LOWEST POSITION AND LOCKED. PLACE CALL LIGHT WITH IN REACH.
[2023-02-11 20:00] VITALS: BP 152/73
--- NOTE | 2023-02-11 20:00 | NUR ---
MS RN NOTE PT IN BED AWAKE. A/O X 2, NO SOB, NO DISTRESS OR DISCOMFORT NOTED. DENIES PAIN AT THIS TIME. WANTS SANDWICH STATES "I DIDN'T EAT ANYTHING DUE TO PROCEDURE". SANDWICH PROVIDED. ON O2 4L VIA N/C O2 SAT 98%. SYMONE MIDLINE INTACT AND PATENT. RCW WITH PERMA CATH INTACT WITH CLEAN DRESSING ON. PUREWICK IN ITS PLACE. KEPT HER DRY AND CLEAN. ALL NEEDS ATTENDED. VSS. REPOSITION HER Q2H. CONTINUE TO MONITOR HER.
[2023-02-11] MEDS: TRAZODONE 50 MG TABLET PO SCH (21:03)
[2023-02-11] MEDS: CLINDAMYCIN 900 MG in IV D5W 50 ML IV SCH (22:09)
[2023-02-11] MEDS: INSULIN REGULAR, HUMAN 100 UNIT/ML 3 ML VIAL SQ PRN (22:09)
[2023-02-11] MEDS ORDERED: IOHEXOL 240MG/ML 0 ML IV ONE (22:36)
[2023-02-12] VITALS: BP 123/71
[2023-02-12] MEDS: MORPHINE SULFATE INJ 2 MG/ML DISP.SYRIN IV PRN ×3 (04:26→11:14)
[2023-02-12] MEDS: methylPREDNISolone SOD SUCC 40 MG/ML VIAL IV SCH ×3 (04:27→23:43)
[2023-02-12] MEDS: CLINDAMYCIN 900 MG in IV D5W 50 ML IV SCH (06:00)
--- NOTE | 2023-02-12 06:50 | NUR ---
MS RN NOTE PT IN BED AWAKE. NO DISTRESS OR DISCOMFORT NOTED. DENIES PAIN. KEPT H2 DRY AND CLEAN. PRIVATE INFORMATION TECHNOLOGY DIRECTOR AT BED SIDE. SIDE RAILS UP X 2 AND CALL LIGHT WITHIN REACH. WILL ENDORSE TO DAY SHIFT NURSE FOR CONTINUE TO CARE. Addendum: 02/12/23 at 0651 by BUBBA LARSON RN WRONG PT CHARTING
--- NOTE | 2023-02-12 06:51 | NUR ---
MS RN NOTE PT IN BED AWAKE. NO DISTRESS OR DISCOMFORT NOTED. DENIES PAIN. KEPT HER DRY AND CLEAN. SIDE RAILS UP X 2 AND CALL LIGHT WITHIN REACH. WILL ENDORSE TO DAY SHIFT NURSE FOR CONTINUE TO CARE.
[2023-02-12] MEDS: BLOOD SUGAR DIAGNOSTIC 1 EACH STRIP IN SCH ×4 (07:30→22:50)
[2023-02-12 07:55] LABS: CALCIUM, SERUM 8.7 mg/dL (8.5-10.1); CREATININE 3.3 mg/dL (0.6-1.3); POTASSIUM 6.1 mmol/L (3.5-5.1)
[2023-02-12 08:00] VITALS: BP 144/113
[2023-02-12] MEDS: LEVOTHYROXINE SODIUM 175 MCG TABLET PO SCH (08:28)
[2023-02-12] MEDS: VIT B CMPLX 3/FA/VIT C/BIOTIN 1 TAB TABLET PO SCH (08:28)
[2023-02-12] MEDS: CLOPIDOGREL BISULFATE 75 MG TABLET PO SCH (08:28)
[2023-02-12] MEDS: PANTOPRAZOLE 40 MG TABLET.DR PO SCH (08:28)
[2023-02-12] MEDS: ASPIRIN 81 MG TAB.CHEW PO SCH (08:28)
[2023-02-12] MEDS: POLYETHYLENE GLYCOL 3350 17 GM POWD.PACK PO SCH (08:28)
[2023-02-12] MEDS: HYDROXYCHLOROQUINE 200 MG TABLET PO SCH (08:28)
[2023-02-12] MEDS: CHOLECALCIFEROL (VITAMIN D 3) 400 UNIT TABLET PO SCH (08:28)
[2023-02-12] MEDS: FLUCONAZOLE (100 MG) 100 MG TABLET PO SCH (08:28)
[2023-02-12] MEDS: busPIRone 5 MG TABLET PO SCH ×2 (08:29→16:48)
[2023-02-12] MEDS: METOPROLOL TARTRATE 50 MG TABLET PO SCH ×2 (08:39→21:00)
[2023-02-12] MEDS: CLOTRIMAZOLE 1% 15 GM TUBE TP SCH ×2 (08:39→16:48)
[2023-02-12] MEDS: PROSOURCE / PROSTAT (PYXIS) 30 ML UDC GT SCH ×2 (08:40→16:48)
[2023-02-12 08:46] LABS: BASOPHILS % (AUTO) 0.2 % (0.0-2.0); HEMATOCRIT 32 % (33-45); LYMPHOCYTES # (AUTO) 0.3 K/uL (0.8-4.8); LYMPHOCYTES % (AUTO) 8.4 % (20.0-44.0); MEAN CORPUSCULAR HGB CONC 31 g/dl (31.0-36.0); MEAN CORPUSCULAR VOLUME 103 fL (82-100); MONOCYTES # (AUTO) 0.1 K/uL (0.1-1.30); MONOCYTES % (AUTO) 1.9 % (2.0-12.0); NEUTROPHILS # (AUTO) 2.9 K/uL (1.8-8.9); NEUTROPHILS % (AUTO) 89.5 % (43.0-81.0); PLATELET COUNT (AUTO) 191 K/uL (150-450); RED BLOOD CELL COUNT(AUTO) 3.08 MIL/uL (4.0-5.2); WHITE BLOOD COUNT (AUTO) 3.3 K/uL (4.3-11.0)
[2023-02-12] MEDS: INSULIN REGULAR, HUMAN 100 UNIT/ML 3 ML VIAL SQ PRN ×3 (09:14→18:29)
[2023-02-12] MEDS: ONDANSETRON HCL/PF 4 MG/2 ML VIAL IVP PRN (11:14)
--- NOTE | 2023-02-12 11:45 | NUR ---
FOR PT EVALUATION I WAS ASKED BY PHYSICAL THERAPY TO GIVE PAIN MEDICATION 2MG MORPHINE ADMINISTERED.
[2023-02-12] MEDS: EPOETIN ALFA-EPBX 4,000 UNIT/ML VIAL SQ SCH (14:52)
[2023-02-12] MEDS: LORAZEPAM 1 MG TABLET PO PRN (14:53)
--- NOTE | 2023-02-12 15:15 | NUR ---
PATIENT REFUSED THE ATIVAN PO SHE SAID IV ONLY BECAUSE TABLET DIES NOT WORK FOR HER, I NOTIFIED DR. LEWIS ALSO, SHE REFUSES ANY PAIN MEDICATION LIKE NORCO, AND SHE IS ASKING FOR MORPHINE EVERY 2 TO [address]. [address] LEWIS IF WE CAN CHANGE THE FREQUENCY FOR MORPHINE FROM Q6 PRN TO Q4 PRN; I AM WAITING FRO HIS RESPOND
[2023-02-12] MEDS: LORAZEPAM INJ 2 MG/ML VIAL IV PRN (15:28)
--- NOTE | 2023-02-12 15:45 | NUR ---
DR. LEWIS RESPONDED AND STATED THAT PATIENT HAS TO TAKE PO MEDCIATION BECAUSE ONCE SHE GOES TO SNF WILL TAKE TABLET NOT IV PUSH MEDCIATION. I AM GOING TO RETURN THE MORPHINE TO THE [facility] AND CAN GIVE IT TO HER AROUND 6PM IF SHE ASKS FOR ANY PAIN MEDICATION.
[2023-02-12 16:00] VITALS: BP 108/64
--- NOTE | 2023-02-12 18:58 | NUR ---
RN CLOSING NOTES PT IN BED SLEEPING 2MG ATIVAN ADMINISTERED AT 1528. NO DISTRESS OR DISCOMFORT NOTED. DENIES PAIN. KEPT HER DRY AND CLEAN. SIDE RAILS UP X 2 AND CALL LIGHT WITHIN REACH. PATIENT REFUSES PO PAIN MEDICATION AND PO ATIVAN MEDICATION DR. LEWIS NOTIFIED AND HE STATED THAT EVENTUALLY AFTER DISCHARGE SHE WILL TAKE PO MEDS. WILL ENDORSE TO THE STATION JAILER NURSE FOR CONTINUE OF CARE.
--- NOTE | 2023-02-12 19:15 | NUR ---
RN OPENING NOTES PT IN BED, AWAKE, DROWSY. NO DISTRESS OR DISCOMFORT NOTED. A&O X 2. PATIENT IS ON 5 LPM OF SUPPLEMENTAL OXYGEN, NO SOB NOTED. RIGHT UPPER ARM MIDLINE IS PATENT AND INTACT. BED LOCKED, SIDE RAILS UP X 2 AND CALL LIGHT WITHIN REACH. CONTINUE TO MONITOR.
[2023-02-12] MEDS: TRAZODONE 50 MG TABLET PO SCH (22:00)
[2023-02-13 04:00] VITALS: BP 141/68
[2023-02-13] MEDS: methylPREDNISolone SOD SUCC 40 MG/ML VIAL IV SCH ×3 (05:09→21:38)
[2023-02-13] MEDS: LORAZEPAM INJ 2 MG/ML VIAL IV PRN ×2 (06:48→18:00)
--- NOTE | 2023-02-13 07:00 | NUR ---
MS RN CLOSING NOTES PT IN BED, AWAKE. NO DISTRESS OR DISCOMFORT NOTED. PATIENT ON 5 LPM OF SUPPLEMENTAL OXYGEN. SAFETY MEASURES IMPLEMENTED, BED IN LOW POSITION, WHEELS LOCKED. SIDE RAILS UP X 2, CALL LIGHT AND ALL BELONGINGS WITHIN REACH. ENDORSED TO THE NEXT SHIFT FOR GUILLERMINA. Addendum: 02/13/23 at 0753 by BUBBA LARSON RN CHRIS TURCIOS IS PATENT AND INTACT.
[2023-02-13 07:05] LABS: BASOPHILS % (AUTO) 0.1 % (0.0-2.0); HEMATOCRIT 31 % (33-45); HEMOGLOBIN 10.1 g/dL (11.5-14.8); LYMPHOCYTES # (AUTO) 0.2 K/uL (0.8-4.8); LYMPHOCYTES % (AUTO) 5.6 % (20.0-44.0); MEAN CORPUSCULAR HGB CONC 32 g/dl (31.0-36.0); MEAN CORPUSCULAR VOLUME 103 fL (82-100); MONOCYTES # (AUTO) 0.1 K/uL (0.1-1.30); MONOCYTES % (AUTO) 2.3 % (2.0-12.0); PLATELET COUNT (AUTO) 175 K/uL (150-450); RED BLOOD CELL COUNT(AUTO) 3.03 MIL/uL (4.0-5.2); WHITE BLOOD COUNT (AUTO) 4.3 K/uL (4.3-11.0)
--- NOTE | 2023-02-13 07:10 | NUR ---
RN NOTE RECEIVED PATIENT IN BED RESTING ALERT ORIENTEDX2-3 VERBALLY RESPONSIVE O2:96% ON 5L NASAL CANNULA,IV ACCESS ON RIGHT UPPER ARM MID LINE INTACT PATENT,RIGHT CHEST WALL PERMCATH,SAFETY MEASURE IMPLEMENT BED IN LOW POSITION AND LOCKED CALL LIGHT WITHIN REACH,IN CONTINET BOWEL/BLADDER HEAD OF THE BED ELEVATED CONTINUE TO MONITOR.
[2023-02-13] MEDS: LEVOTHYROXINE SODIUM 175 MCG TABLET PO SCH (07:12)
[2023-02-13] MEDS: PANTOPRAZOLE 40 MG TABLET.DR PO SCH (07:12)
[2023-02-13 07:30] LABS: CALCIUM, SERUM 8.5 mg/dL (8.5-10.1); CREATININE 2.7 mg/dL (0.6-1.3); MAGNESIUM 2.4 mg/dL (1.8-2.4); PHOSPHORUS 5.9 mg/dL (2.5-4.9); POTASSIUM 5.1 mmol/L (3.5-5.1)
[2023-02-13] MEDS: BLOOD SUGAR DIAGNOSTIC 1 EACH STRIP IN SCH ×4 (07:33→23:07)
[2023-02-13] MEDS: ASPIRIN 81 MG TAB.CHEW PO SCH (09:04)
[2023-02-13] MEDS: busPIRone 5 MG TABLET PO SCH ×2 (09:04→16:17)
[2023-02-13] MEDS: FLUCONAZOLE (100 MG) 100 MG TABLET PO SCH (09:05)
[2023-02-13] MEDS: CHOLECALCIFEROL (VITAMIN D 3) 400 UNIT TABLET PO SCH (09:05)
[2023-02-13] MEDS: HYDROXYCHLOROQUINE 200 MG TABLET PO SCH (09:05)
[2023-02-13] MEDS: CLOPIDOGREL BISULFATE 75 MG TABLET PO SCH (09:05)
[2023-02-13] MEDS: VIT B CMPLX 3/FA/VIT C/BIOTIN 1 TAB TABLET PO SCH (09:05)
[2023-02-13] MEDS: PROSOURCE / PROSTAT (PYXIS) 30 ML UDC GT SCH (09:08)
[2023-02-13] MEDS: POLYETHYLENE GLYCOL 3350 17 GM POWD.PACK PO SCH (09:11)
[2023-02-13] MEDS: CLOTRIMAZOLE 1% 15 GM TUBE TP SCH ×2 (09:11→16:17)
[2023-02-13] MEDS: METOPROLOL TARTRATE 50 MG TABLET PO SCH ×2 (09:13→21:38)
[2023-02-13 12:00] VITALS: BP 132/62
[2023-02-13] MEDS: INSULIN REGULAR, HUMAN 100 UNIT/ML 3 ML VIAL SQ PRN ×3 (12:22→23:19)
[2023-02-13] MEDS: MORPHINE SULFATE INJ 2 MG/ML DISP.SYRIN IV PRN (14:37)
[2023-02-13] MEDS ORDERED: GUAIFENESIN 300 MG/15 ML UDC PO PRN (14:52)
[2023-02-13] MEDS: PROSOURCE / PROSTAT (PYXIS) 30 ML UDC PO SCH (16:17)
[2023-02-13] MEDS: SEVELAMER CARBONATE 800 MG POWD.PACK PO SCH (18:00)
--- NOTE | 2023-02-13 18:45 | NUR ---
RN NOTE PATIENT REMAINS IN BED RESTING ALERT ORIENTEDX2-3,ANXIOUS, VERBALLY RESPONSIVE O2:96% ON 5L NASAL CANNULA,NO SOB NOT ACUTE DISTRESS NOTED,IV ACCESS ON RIGHT UPPER ARM MID LINE INTACT PATENT,RIGHT CHEST WALL PERMCATH,DIALYSIS DONE,ALL DUE MEDS GIVEN MD ORDERED KEPT CLEAN AND DRY ALL THE TIME,KEPT CALL LIGHT WITHIN REACH,ALL NEEDS MET ENDORSE NEXT COMING SHIFT FOR CONTINUATION OF CARE.
--- NOTE | 2023-02-13 19:00 | NUR ---
RN NOTE Received pt in bed, asleep at this time, respiration even and unlabored, easily arousable. On 4L O2 tx via NC, well tolerated, no SOB, no acute distress noted. No evidence of pain or discomfort noted at this time. CHRIS ML flushes well, dressing CDI, RCW permcath covered w DD, CDI, no active bleeding noted. HOB elevated for comfort. Call light within easy reach. Will cont POC.
[2023-02-13 20:00] VITALS: BP 149/57
[2023-02-13] MEDS: TRAZODONE 50 MG TABLET PO SCH (21:38)
[2023-02-14] MEDS: MORPHINE SULFATE INJ 2 MG/ML DISP.SYRIN IV PRN ×4 (00:15→17:16)
--- NOTE | 2023-02-14 02:45 | NUR ---
RN NOTE Pt. noted with c/o anxiety, pt requested for Ativan PRN pulled out from [facility]. Pulled out 2mg/1ml vial, partial dose 1mg/0.5ml wasted as ordered witnessed by MARGARITA Encinas. Accidentally discarded vial prior scanning medication. Count back done with MARGARITA Encinas with 7 vials remaining in Pyxis. Charge nurse De La Torre aware, will communicate with pharmacy in am. Addendum: 02/14/23 at 349 by GURDEEP WEIR RN Cycle count and count back done with MARGARITA Cartagena and Jensen De La Torre. Will communicated with pharmacy in AM. Addendum: 02/14/23 at 035 by GURDEEP WEIR RN Cycle count and count back done with MARGARITA Cartagena and Jensen De La Torre, 7 vials of Ativan in Pyxis counted with no discrepancy noted. Will communicated with pharmacy in AM.
[2023-02-14] MEDS: LORAZEPAM INJ 2 MG/ML VIAL IV PRN ×2 (02:51→13:06)
[2023-02-14 04:00] VITALS: BP 152/68
[2023-02-14] MEDS: methylPREDNISolone SOD SUCC 40 MG/ML VIAL IV SCH ×2 (05:08→12:55)
[2023-02-14 06:06] LABS: BASOPHILS % (AUTO) 0.1 % (0.0-2.0); HEMATOCRIT 32 % (33-45); HEMOGLOBIN 10.4 g/dL (11.5-14.8); LYMPHOCYTES # (AUTO) 0.4 K/uL (0.8-4.8); LYMPHOCYTES % (AUTO) 6.1 % (20.0-44.0); MEAN CORPUSCULAR HGB CONC 32 g/dl (31.0-36.0); MEAN CORPUSCULAR VOLUME 102 fL (82-100); MONOCYTES # (AUTO) 0.2 K/uL (0.1-1.30); MONOCYTES % (AUTO) 3.1 % (2.0-12.0); NEUTROPHILS # (AUTO) 5.4 K/uL (1.8-8.9); NEUTROPHILS % (AUTO) 90.7 % (43.0-81.0); PLATELET COUNT (AUTO) 196 K/uL (150-450); RED BLOOD CELL COUNT(AUTO) 3.18 MIL/uL (4.0-5.2)
[2023-02-14 06:19] LABS: CALCIUM, SERUM 8.7 mg/dL (8.5-10.1); CREATININE 2.5 mg/dL (0.6-1.3); MAGNESIUM 2.6 mg/dL (1.8-2.4); PHOSPHORUS 5.1 mg/dL (2.5-4.9); POTASSIUM 5.1 mmol/L (3.5-5.1)
--- NOTE | 2023-02-14 06:47 | NUR ---
RN NOTE Pt. in bed, comfortably resting. Remains on 4L O2 tx via NC, well tolerated, no SOB, no acute distress noted. Pt. slept well throughout the shift. No evidence of pain or discomfort noted at this time. CHRIS ML flushes well, dressing CDI, RCW permacath covered w DD, CDI, no active bleeding noted. All needs attended, all due medications given as ordered. HOB elevated for comfort. Call light within easy reach.
[2023-02-14] MEDS: BLOOD SUGAR DIAGNOSTIC 1 EACH STRIP IN SCH ×2 (07:30→12:04)
--- NOTE | 2023-02-14 07:48 | NUR ---
MS RN OPENING NOTE PATIENT RECEIVED IN BED ASLEEP. ON 4L O2 VIA NC BREATHING EVEN AND UNLABORED WITH NO S/S OF SOB OR RESPIRATORY DISTRESS NOTED. IV ACCESS AT [facility] MIDLINE, INTACT AND PATENT. R CHEST PERM CATH IN PLACE WITH NO ACTIVE BLEEDING NOTED. SAFETY PRECAUTIONS IN PLACE WITH BED IN LOWEST LOCKED POSITION, SIDE RAILS UP X3, AND CALL LIGHT AND TABLE WITHIN REACH. WILL CONTINUE TO MONITOR.
[2023-02-14] MEDS: SEVELAMER CARBONATE 800 MG POWD.PACK PO SCH ×3 (08:00→08:47)
[2023-02-14] MEDS: POLYETHYLENE GLYCOL 3350 17 GM POWD.PACK PO SCH (08:23)
[2023-02-14] MEDS: busPIRone 5 MG TABLET PO SCH (08:23)
[2023-02-14] MEDS: ASPIRIN 81 MG TAB.CHEW PO SCH (08:23)
[2023-02-14] MEDS: LEVOTHYROXINE SODIUM 175 MCG TABLET PO SCH (08:23)
[2023-02-14] MEDS: CHOLECALCIFEROL (VITAMIN D 3) 400 UNIT TABLET PO SCH (08:23)
[2023-02-14] MEDS: PANTOPRAZOLE 40 MG TABLET.DR PO SCH (08:23)
[2023-02-14] MEDS: HYDROXYCHLOROQUINE 200 MG TABLET PO SCH (08:23)
[2023-02-14] MEDS: CLOPIDOGREL BISULFATE 75 MG TABLET PO SCH (08:24)
[2023-02-14] MEDS: FLUCONAZOLE (100 MG) 100 MG TABLET PO SCH (08:24)
[2023-02-14] MEDS: VIT B CMPLX 3/FA/VIT C/BIOTIN 1 TAB TABLET PO SCH (08:24)
[2023-02-14] MEDS: PROSOURCE / PROSTAT (PYXIS) 30 ML UDC PO SCH ×3 (08:26→08:56)
--- NOTE | 2023-02-14 08:46 | NUR ---
PATIENT REFUSED SEVELAMER, PROSTAT, AND ACCU CHECK Addendum: 02/14/23 at 0851 by MARCIA COOPER RN PATIENT EDUCATION PROVIDED ON IMPORTANCE OF FOLLOWING MEDICATION REGIMEN AND RISK OF NON COMPLIANCE.
[2023-02-14] MEDS: METOPROLOL TARTRATE 50 MG TABLET PO SCH ×3 (08:55→09:06)
[2023-02-14] MEDS: CLOTRIMAZOLE 1% 15 GM TUBE TP SCH (09:00)
--- NOTE | 2023-02-14 09:02 | NUR ---
PATIENT REQUESTED MORPHINE. WHEN TAKEN TO ROOM PATIENT REFUSED MEDICATION AND ASKED FOR ATIVAN INSTEAD.
--- NOTE | 2023-02-14 09:02 | NUR ---
PATIENT REFUSED METOPROLOL. PATIENT EDUCATION ON RISKS OF NON-COMPLIANCE.
--- NOTE | 2023-02-14 09:11 | NUR ---
MORPHINE WASTE WITNESSED BY NANETTE Dickson RN.
[2023-02-14] MEDS ORDERED: FLUC200T PO (11:07)
--- NOTE | 2023-02-14 11:33 | NUR ---
PATIENT GETTING HD DONE.
[2023-02-14] MEDS: INSULIN REGULAR, HUMAN 100 UNIT/ML 3 ML VIAL SQ PRN (12:08)
[2023-02-14] MEDS: LORAZEPAM 1 MG TABLET PO PRN ×2 (12:42→12:52)
--- NOTE | 2023-02-14 12:52 | NUR ---
PATIENT STOPPED HD AFTER 2 HOURS. 1830 OUT OF 3000 ORDERED REMOVED
--- NOTE | 2023-02-14 12:53 | NUR ---
PATIENT REQUESTED ATIVAN. REMOVED ATIVAN 1MG TABLET FROM [employer]. I WAS HANDING MEDICATION TO PATIENT, SHE REFUSED IT SAYING SHE DID NOT WANT TO TAKE IT PO BUT RATHER WANTED IT BY IV. WASTED OPENED TABLET WITH NANETTE Dickson RN.
--- NOTE | 2023-02-14 12:56 | NUR ---
PATIENT REFUSED 1300 METHYLPREDNISONE AND SEVELAMER.
[2023-02-14] MEDS ORDERED: SEVELAMER CARBONATE 800 MG TABLET PO SCH (13:00)
--- NOTE | 2023-02-14 14:52 | NUR ---
REPORT GIVEN TO PRATEEK AT [facility] [phone]. PATIENT SCHEDULED TO BE PICKED UP AT 1500.
[2023-02-14] MEDS: EPOETIN ALFA-EPBX 4,000 UNIT/ML VIAL SQ SCH (15:44)
--- NOTE | 2023-02-14 15:45 | NUR ---
PICKUP CHANGED TO 1700
[2023-02-14 16:00] VITALS: BP 169/99
--- NOTE | 2023-02-14 17:58 | NUR ---
PATIENT PICKED UP BY AMBULANCE. PATIENT IN STABLE CONDITION ON DISCHARGE.
== END 2023-02-14 18:06 | DRG 314 ==
LOC: ER 23:36 → MED 01-29 02:25 → TELE 01-29 03:57 → MED 02-04 11:24 → ICU 02-06 02:57 → TELE1 02-07 18:08 → MEDSG1 02-11 06:40
PROVIDERS: ADMIT Nurse Practitioner Acute Care; ATTEND Nurse Practitioner Acute Care
PROC: 5A1D70Z Performance of Urinary Filtration, Intermittent, Less than 6 Hours Per Day (ICD-10-PCS; 2023-01-29)
PROC: 05H933Z Insertion of Infusion Device into Right Brachial Vein, Percutaneous Approach (ICD-10-PCS; 2023-01-30)
PROC: 05PYX3Z Removal of Infusion Device from Upper Vein, External Approach (ICD-10-PCS; principal; 2023-02-05)
PROC: 06HY33Z Insertion of Infusion Device into Lower Vein, Percutaneous Approach (ICD-10-PCS; 2023-02-07)
PROC: 0JH63XZ Insertion of Tunneled Vascular Access Device into Chest Subcutaneous Tissue and Fascia, Percutaneous Approach (ICD-10-PCS; 2023-02-11)
PROC: 05HM33Z Insertion of Infusion Device into Right Internal Jugular Vein, Percutaneous Approach (ICD-10-PCS; 2023-02-11)
PROC: B513YZA Fluoroscopy of Right Jugular Veins using Other Contrast, Guidance (ICD-10-PCS; 2023-02-11)
DX: T82.7XXA Infection and inflammatory reaction due to other cardiac and vascular devices, implants and grafts, initial encounter (principal); A41.89 Other specified sepsis; N18.6 End stage renal disease; R65.21 Severe sepsis with septic shock; I50.33 Acute on chronic diastolic (congestive) heart failure; D68.59 Other primary thrombophilia; I13.2 Hypertensive heart and chronic kidney disease with heart failure and with stage 5 chronic kidney disease, or end stage renal disease; J98.11 Atelectasis; B49 Unspecified mycosis; N39.0 Urinary tract infection, site not specified; E87.1 Hypo-osmolality and hyponatremia; J90 Pleural effusion, not elsewhere classified; I25.10 Atherosclerotic heart disease of native coronary artery without angina pectoris; E11.22 Type 2 diabetes mellitus with diabetic chronic kidney disease; Z99.2 Dependence on renal dialysis; E87.5 Hyperkalemia; Y92.9 Unspecified place or not applicable; Y84.8 Other medical procedures as the cause of abnormal reaction of the patient, or of later complication, without mention of misadventure at the time of the procedure; Z20.822 Contact with and (suspected) exposure to COVID-19; E11.65 Type 2 diabetes mellitus with hyperglycemia; Z87.39 Personal history of other diseases of the musculoskeletal system and connective tissue; M32.9 Systemic lupus erythematosus, unspecified; Z88.0 Allergy status to penicillin; Z88.2 Allergy status to sulfonamides; Z88.1 Allergy status to other antibiotic agents; Z91.040 Latex allergy status; E66.01 Morbid (severe) obesity due to excess calories; D63.1 Anemia in chronic kidney disease; Z68.36 Body mass index [BMI] 36.0-36.9, adult; E03.9 Hypothyroidism, unspecified; E83.39 Other disorders of phosphorus metabolism; B95.2 Enterococcus as the cause of diseases classified elsewhere; G47.33 Obstructive sleep apnea (adult) (pediatric); G89.4 Chronic pain syndrome; M89.8X9 Other specified disorders of bone, unspecified site; Z74.01 Bed confinement status; Z87.440 Personal history of urinary (tract) infections; Z74.09 Other reduced mobility; F29 Unspecified psychosis not due to a substance or known physiological condition; B37.9 Candidiasis, unspecified; Z79.899 Other long term (current) drug therapy; Z79.82 Long term (current) use of aspirin; I95.2 Hypotension due to drugs; T40.2X5A Adverse effect of other opioids, initial encounter
CPT/HCPCS: 36415; 71045-TC; 80048-TC; 80076-TC; 82533; 82962-TC; 83605-TC; 83735-TC; 83880; 84100-TC; 84443-TC; 84484-TC; 85025-TC; 85027-TC; 85730-TC; 86704; 86706; 87040-TC; 87070-TC; 87081-TC; 87340; 90935-TC; 93307-TC; 97110-TC; 97112-TC; 97530-TC; A4216; A4223; A6253; A6403; C1750; C1757; C1769; C1894; C9803; G0378; J0461; J0610; J0885; J1100; J1450; J1644; J1815; J1885; J1940; J1956; J2060; J2185; J2270; J2405; J2704; J2920; J3490; J7030; J7050; J7060; P9047; Q0162; Q9966; Q9967